=== PATIENT | female | born 1965 | race Caucasian/White ===

== ENCOUNTER 2017-11-27 01:24 | Emergency (ER) | payer MEDICAID ==
[~2017-11-27] VITALS: Ht 165.1 cm; Wt 70.0 kg
[~2017-11-27 01:24] MED LIST: ARIP5TAB4 PO; BENZ0.5T43 PO; CEPH500C5 PO; CLON0.5T4 PO; DIVA-81 PO; IBUP-1985 PO; LEVO75TA PO; LORA10TA7 PO; MELA3TAB PO; NAPR250T4 PO; OMEP20CA10 PO; PROC10TA PO; RISP1TAB13 PO; SIMV20TA5 PO
[2017-11-27 01:26] VITALS: BP 177/77
== END 2017-11-27 02:33 | disposition left against medical advice (07) ==
LOC: ER 01:24
DX: M79.662 Pain in left lower leg (principal); Z76.5 Malingerer [conscious simulation]; K21.9 Gastro-esophageal reflux disease without esophagitis; E78.00 Pure hypercholesterolemia, unspecified; J45.909 Unspecified asthma, uncomplicated; Z88.8 Allergy status to other drugs, medicaments and biological substances
CPT/HCPCS: 99283

== ENCOUNTER 2017-11-30 13:53 | Emergency (ER) | payer MEDICAID | END 2017-11-30 14:52 | disposition left against medical advice (07) | LOC: ER 13:55 | DX: R68.89 Other general symptoms and signs (principal); Z53.21 Procedure and treatment not carried out due to patient leaving prior to being seen by health care provider ==

== ENCOUNTER → 2018-01-31 | Emergency (ER) | payer MEDICAID ==
[~2018-01-31] VITALS: Ht 165.1 cm; Wt 60.6 kg
[2018-01-31 15:24] VITALS: BP 129/70
== END | disposition left against medical advice (07) ==
LOC: ER 15:09
DX: L02.91 Cutaneous abscess, unspecified (principal); Z53.21 Procedure and treatment not carried out due to patient leaving prior to being seen by health care provider

== ENCOUNTER 2018-03-25 20:31 | Emergency (ER) | payer MEDICAID ==
[~2018-03-25] VITALS: Ht 165.1 cm; Wt 62.3 kg
[2018-03-25 20:54] LABS: BASOPHILS # (AUTO) 0.1 X10'3 (0-0.2); BASOPHILS % (AUTO) 1.1 % (0-1); EOSINOPHILS # (AUTO) 0.3 X10'3 (0-0.9); EOSINOPHILS % (AUTO) 3.9 % (0-6); HEMATOCRIT 32.6 % (35.0-45.0); HEMOGLOBIN 10.8 g/dl (12.0-16.0); LYMPHOCYTES # (AUTO) 1.9 X10'3 (1.1-4.8); MEAN CORPUSCULAR HEMOGLOBIN 27.4 PG (27.0-31.0); MEAN CORPUSCULAR HGB CONC 33.2 % (33.0-36.5); MEAN CORPUSCULAR VOLUME 82.5 FL (78-98); MONOCYTES # (AUTO) 0.7 X10'3 (0-0.9); MONOCYTES % (AUTO) 9.5 % (2-12); NEUTROPHILS % (AUTO) 58.5 % (42-75); PLATELET COUNT 271 X10'3 (140-440); RED BLOOD COUNT 3.95 X10'6 (4.20-5.60); RED CELL DISTRIBUTION WIDTH 15.6 % (11.5-14.5); WHITE BLOOD COUNT 6.9 X10'3 (4.5-11.0)
[2018-03-25 21:03] LABS: PARTIAL THROMBOPLASTIN TIME 26 SECONDS (22-32); PROTHROMBIN TIME 10.3 SECONDS (9.0-12.0)
[2018-03-25 21:12] LABS: ALANINE AMINOTRANSFERASE 13 U/L (12-78); ALBUMIN 3.4 G/DL (3.4-5.0); ALBUMIN/GLOBULIN RATIO 1.1 (1.1-1.5); ALKALINE PHOSPHATASE 58 IU/L (46-116); ANION GAP 9 (8-16); ASPARTATE AMINO TRANSFERASE 12 U/L (10-37); BILIRUBIN,TOTAL 0.3 MG/DL (0.1-1.0); BLOOD UREA NITROGEN 21 MG/DL (7-18); BUN/CREATININE RATIO 16.9 (6.6-38.0); CALCIUM 8.6 MG/DL (8.5-10.1); CHLORIDE 103 MMOL/L (99-107); CREATININE 1.24 MG/DL (0.40-0.90); GLUCOSE 99 MG/DL (70-104); SODIUM 139 MMOL/L (135-145); TOTAL CARBON DIOXIDE 27.5 MMOL/L (24-32); TOTAL PROTEIN 6.5 G/DL (6.4-8.2); eGFR 46 ML/MIN
[2018-03-25 21:37] VITALS: BP 93/48
== END 2018-03-25 21:42 | disposition home or self-care (01) ==
LOC: ER 20:32
DX: R07.89 Other chest pain (principal); R42 Dizziness and giddiness; G43.909 Migraine, unspecified, not intractable, without status migrainosus; E78.00 Pure hypercholesterolemia, unspecified; J45.909 Unspecified asthma, uncomplicated; K21.9 Gastro-esophageal reflux disease without esophagitis; F12.10 Cannabis abuse, uncomplicated; F15.10 Other stimulant abuse, uncomplicated; Z56.0 Unemployment, unspecified; Z88.8 Allergy status to other drugs, medicaments and biological substances; Z79.899 Other long term (current) drug therapy
CPT/HCPCS: 36415; 71045; 80053; 84484; 85025; 85610; 85730; 93005; 99285

== ENCOUNTER 2018-04-21 21:34 | Emergency (ER) | payer MEDICAID ==
[~2018-04-21] VITALS: Ht 165.1 cm; Wt 65.0 kg
[~2018-04-21 21:34] MED LIST changes: -PROC10TA PO; +PROC10TA10 PO
[2018-04-21] MEDS ORDERED: diphenhydrAMINE 25mg capsule PO ONE (22:25)
[2018-04-21 22:37] VITALS: BP 110/70
== END 2018-04-22 06:31 | disposition home or self-care (01) ==
LOC: ER 21:36
DX: F41.8 Other specified anxiety disorders (principal); G43.909 Migraine, unspecified, not intractable, without status migrainosus; E78.00 Pure hypercholesterolemia, unspecified; K21.9 Gastro-esophageal reflux disease without esophagitis; F31.9 Bipolar disorder, unspecified; F20.9 Schizophrenia, unspecified; F12.10 Cannabis abuse, uncomplicated; F15.10 Other stimulant abuse, uncomplicated; Z88.8 Allergy status to other drugs, medicaments and biological substances; Z79.899 Other long term (current) drug therapy; Z56.0 Unemployment, unspecified
CPT/HCPCS: 99284; Q0163; 99282; 99283

== ENCOUNTER 2018-05-31 10:54 | Emergency (ER) | payer MEDICAID ==
[~2018-05-31] VITALS: Ht 152.4 cm; Wt 63.6 kg
[~2018-05-31 10:54] MED LIST changes: +CLON-285 PO; -CLON0.5T4 PO
[2018-05-31] MEDS ORDERED: TETanus/Pertussis (Acell)/Diphther VAC/PF (Tdap-Adult) 0.5ml syringe IM ONE (11:20)
[2018-05-31] MEDS ORDERED: naproxen 500mg tablet PO STA (11:20)
[2018-05-31] MEDS ORDERED: mupirocin 2% ointment 22GM TP STA (11:20)
[2018-05-31] MEDS ORDERED: mupirocin 2% nasal ointment 1gm UD NS STA (11:23)
[2018-05-31] MEDS ORDERED: NAPR-56 PO (11:35)
[2018-05-31] MEDS ORDERED: MUPI22OI30 TOP (11:35)
[2018-05-31 11:52] VITALS: BP 129/86
== END 2018-05-31 11:55 | disposition home or self-care (01) ==
LOC: ER 10:54
DX: T23.242A Burn of second degree of multiple left fingers (nail), including thumb, initial encounter (principal); T31.0 Burns involving less than 10% of body surface; G43.909 Migraine, unspecified, not intractable, without status migrainosus; E78.00 Pure hypercholesterolemia, unspecified; J45.909 Unspecified asthma, uncomplicated; K21.9 Gastro-esophageal reflux disease without esophagitis; F31.9 Bipolar disorder, unspecified; F15.90 Other stimulant use, unspecified, uncomplicated; F12.90 Cannabis use, unspecified, uncomplicated; Z98.51 Tubal ligation status; Z56.0 Unemployment, unspecified; Z88.8 Allergy status to other drugs, medicaments and biological substances; Z79.899 Other long term (current) drug therapy; Z79.2 Long term (current) use of antibiotics; X08.8XXA Exposure to other specified smoke, fire and flames, initial encounter; Y93.89 Activity, other specified; Y92.89 Other specified places as the place of occurrence of the external cause; Y99.8 Other external cause status
CPT/HCPCS: 16020; 90471; 90715; 99284; A6255; 16000

== ENCOUNTER 2018-06-01 07:11 | Emergency (ER) | payer MEDICAID ==
[~2018-06-01] VITALS: Ht 172.7 cm; Wt 58.0 kg
[~2018-06-01 07:11] MED LIST changes: +MUPI22OI30 TOP; +NAPR-56 PO
[2018-06-01 07:21] VITALS: BP 99/54
== END 2018-06-01 08:31 | disposition home or self-care (01) ==
LOC: ER 07:12
DX: T23.242D Burn of second degree of multiple left fingers (nail), including thumb, subsequent encounter (principal); G43.909 Migraine, unspecified, not intractable, without status migrainosus; E78.00 Pure hypercholesterolemia, unspecified; J45.909 Unspecified asthma, uncomplicated; K21.9 Gastro-esophageal reflux disease without esophagitis; F12.90 Cannabis use, unspecified, uncomplicated; F15.90 Other stimulant use, unspecified, uncomplicated; Z88.8 Allergy status to other drugs, medicaments and biological substances; Z79.899 Other long term (current) drug therapy; Z56.0 Unemployment, unspecified; X08.8XXD Exposure to other specified smoke, fire and flames, subsequent encounter
CPT/HCPCS: 99284

== ENCOUNTER 2018-08-02 00:24 | Emergency (ER) | payer MEDICAID ==
[~2018-08-02] VITALS: Ht 165.1 cm; Wt 51.8 kg
[~2018-08-02 00:24] MED LIST changes: -MUPI22OI30 TOP; -NAPR-56 PO
[2018-08-02 00:26] VITALS: BP 117/90
== END 2018-08-02 00:58 | disposition left against medical advice (07) ==
LOC: ER 00:25
DX: R00.2 Palpitations (principal); Z53.21 Procedure and treatment not carried out due to patient leaving prior to being seen by health care provider
CPT/HCPCS: 99281

== ENCOUNTER 2018-08-18 18:44 | Emergency (ER) | payer MEDICAID ==
[2018-08-18 18:46] VITALS: BP 132/65
== END 2018-08-18 19:02 | disposition left against medical advice (07) ==
LOC: ER 18:45
DX: R21 Rash and other nonspecific skin eruption (principal); Z53.21 Procedure and treatment not carried out due to patient leaving prior to being seen by health care provider

== ENCOUNTER 2018-10-03 14:15 | Emergency (ER) | payer MEDICAID ==
[~2018-10-03] VITALS: Ht 165.1 cm; Wt 66.8 kg
[2018-10-03 14:18] VITALS: BP 134/62
[2018-10-03] MEDS ORDERED: PRED10TA PO (14:39)
== END 2018-10-03 15:04 | disposition home or self-care (01) ==
LOC: ER 14:16
DX: R21 Rash and other nonspecific skin eruption (principal); L29.8 Other pruritus; L53.8 Other specified erythematous conditions; L98.8 Other specified disorders of the skin and subcutaneous tissue; G43.909 Migraine, unspecified, not intractable, without status migrainosus; E78.00 Pure hypercholesterolemia, unspecified; K21.9 Gastro-esophageal reflux disease without esophagitis; J45.909 Unspecified asthma, uncomplicated; F12.90 Cannabis use, unspecified, uncomplicated; F15.90 Other stimulant use, unspecified, uncomplicated; Z56.0 Unemployment, unspecified; Z88.8 Allergy status to other drugs, medicaments and biological substances; Z79.899 Other long term (current) drug therapy; Z98.51 Tubal ligation status; Z87.2 Personal history of diseases of the skin and subcutaneous tissue
CPT/HCPCS: 99283

== ENCOUNTER 2018-12-05 09:57 | Emergency (ER) | payer MEDICAID ==
[~2018-12-05] VITALS: Ht 165.1 cm; Wt 60.0 kg
[~2018-12-05 09:57] MED LIST changes: -CEPH500C5 PO; +PRED10TA PO
--- NOTE | 2018-12-05 10:17 | NUR ---
PT'S BELONGINGS TAKEN TO AMBULANCE [facility]OCK[facility]. ITEMS INCLUDE: 1 AVERY NECKLACE, 1 YELLOW NECKLACE, 1 PAIR OF SHOES, 2 PAIRS OF SOCKS, 2 PANTS, 1 JACKET, AND 1 SHIRT. 1 SET OF EYEGLASSES ON PATIENT AT THIS TIME.
--- NOTE | 2018-12-05 10:41 | NUR ---
CALLED AND INITIATED TELE PSYCH CONSULT AT THIS TIME
[2018-12-05 11:19] LABS: URINE HCG NEGATIVE (NEG)
[2018-12-05 11:22] LABS: CLARITY,URINE CLEAR (Clear); COLOR,URINE YELLOW (Yellow); GLUCOSE, URINE NEGATIVE (Neg); KETONES,URINE NEGATIVE (Neg); LEUKOCYTE ESTERASE ,URINE NEGATIVE (Neg); NITRITES, URINE NEGATIVE (Neg); OCCULT BLOOD,URINE NEGATIVE (Neg); PH,URINE 5.5 (4.8-8.0); PROTEIN,URINE NEGATIVE (Neg); UROBILINOGEN,URINE 0.2 E.U/dL (0.2-1.0)
[2018-12-05 11:28] LABS: UA COLLECTION TYPE CLN CATCH MIDSTREAM
[2018-12-05 11:38] LABS: URINE AMPHETAMINE SCREEN POSITIVE (Neg); URINE BARBITUATE SCREEN NEGATIVE (Neg); URINE BENZODIAZEPINES SCREEN NEGATIVE (Neg); URINE CANNABINOID SCREEN POSITIVE (Neg); URINE COCAINE SCREEN NEGATIVE (Neg); URINE METHADONE SCREEN NEGATIVE (Neg); URINE OPIATE SCREEN NEGATIVE (Neg); URINE PHENCYCLIDINE SCREEN NEGATIVE (Neg)
--- NOTE | 2018-12-05 12:10 | NUR ---
Pt currently having telepsych consult
[2018-12-05 12:47] LABS: BASOPHILS # (AUTO) 0.1 X10'3 (0-0.2); BASOPHILS % (AUTO) 0.9 % (0-1); EOSINOPHILS # (AUTO) 0.1 X10'3 (0-0.9); EOSINOPHILS % (AUTO) 2.4 % (0-6); HEMATOCRIT 39.4 % (35.0-45.0); HEMOGLOBIN 12.8 g/dl (12.0-16.0); LYMPHOCYTES # (AUTO) 1.2 X10'3 (1.1-4.8); LYMPHOCYTES % (AUTO) 18.8 % (21-51); MEAN CORPUSCULAR HEMOGLOBIN 27.9 PG (27.0-31.0); MEAN CORPUSCULAR HGB CONC 32.4 % (33.0-36.5); MEAN PLATELET VOLUME 8.3 FL (7.4-10.4); MONOCYTES # (AUTO) 0.5 X10'3 (0-0.9); MONOCYTES % (AUTO) 7.6 % (2-12); NEUTROPHILS # (AUTO) 4.4 X10'3 (1.8-7.7); NEUTROPHILS % (AUTO) 70.3 % (42-75); PLATELET COUNT 293 X10'3 (140-440); RED BLOOD COUNT 4.58 X10'6 (4.20-5.60); RED CELL DISTRIBUTION WIDTH 15.4 % (11.5-14.5); WHITE BLOOD COUNT 6.3 X10'3 (4.5-11.0)
[2018-12-05] MEDS ORDERED: ALBU18HF2 INH (13:06)
[2018-12-05] MEDS ORDERED: NAPR-996 PO (13:06)
[2018-12-05] MEDS ORDERED: OMEP-50 PO (13:06)
[2018-12-05] MEDS ORDERED: CALC-829 PO (13:06)
[2018-12-05] MEDS ORDERED: ARIP400S3 IM (13:06)
[2018-12-05] MEDS ORDERED: TOPI50TA24 PO (13:06)
[2018-12-05] MEDS ORDERED: DIVA500T39 PO (13:06)
[2018-12-05] MEDS ORDERED: FEXO-61 PO (13:06)
[2018-12-05] MEDS ORDERED: KEN0.1O (13:06)
[2018-12-05] MEDS ORDERED: SUMA100T16 PO (13:06)
[2018-12-05 13:21] LABS: ALBUMIN 3.5 G/DL (3.4-5.0); ALBUMIN/GLOBULIN RATIO 1.2 (1.1-1.5); ANION GAP 12 (8-16); ASPARTATE AMINO TRANSFERASE 12 U/L (10-37); BILIRUBIN,TOTAL 0.3 MG/DL (0.1-1.0); CALCIUM 8.7 MG/DL (8.5-10.1); CHLORIDE 99 MMOL/L (99-107); CREATININE 0.85 MG/DL (0.40-0.90); GLUCOSE 94 MG/DL (70-104); POTASSIUM 3.9 MMOL/L (3.5-5.1); SODIUM 135 MMOL/L (135-145); TOTAL CARBON DIOXIDE 24.5 MMOL/L (24-32); TOTAL PROTEIN 6.5 G/DL (6.4-8.2); eGFR 71 ML/MIN
[2018-12-05 13:22] LABS: ALANINE AMINOTRANSFERASE 13 U/L (12-78); ALKALINE PHOSPHATASE 57 IU/L (46-116); ETHANOL < 0.010 GM/DL (0.0-0.010)
[2018-12-05 13:29] LABS: BLOOD UREA NITROGEN 7 MG/DL (7-18); BUN/CREATININE RATIO 8.2 (6.6-38.0)
[2018-12-05] MEDS ORDERED: non-formulary drug (Ibuprofen 1 TAB) PO PRN (13:30)
[2018-12-05] MEDS ORDERED: aripiprazole 400mg suspension ER syringe IM SCH (13:42)
[2018-12-05] MEDS ORDERED: albuterol 2.5 MG/3 ML nebule NEB PRN (13:45)
--- NOTE | 2018-12-05 15:00 | NUR ---
PACKET FAXED TO [facility] OFFICE AT THIS TIME
--- NOTE | 2018-12-05 15:13 | NUR ---
Patient is sleeping
[2018-12-05] MEDS ORDERED: LORazepam 1 MG tablet PO PRN (15:40)
[2018-12-05] MEDS ORDERED: ziprasidone IM 20mg inj **IM only IM PRN (15:40)
[2018-12-05] MEDS ORDERED: ziprasidone 20mg capsule PO PRN (15:40)
[2018-12-05] MEDS: topiramate 25mg tablet PO SCH (16:04)
[2018-12-05] MEDS: cetirizine 10mg tablet PO SCH (16:05)
[2018-12-05] MEDS: calcium carbonate/vitamin D3 tablet PO SCH (16:05)
[2018-12-05] MEDS: aripiprazole 5mg tablet PO SCH (16:05)
[2018-12-05] MEDS ORDERED: ibuprofen 200mg tablet PO ONE (17:10)
--- NOTE | 2018-12-05 18:22 | NUR ---
Report given to ELSY Carreon
--- NOTE | 2018-12-05 18:25 | NUR ---
Assumed care, sitting up in bed, denies needs at this time.
--- NOTE | 2018-12-05 18:28 | NUR ---
TSH report faxed to Felipe Aly at [phone]
--- NOTE | 2018-12-05 18:59 | NUR ---
Resting in bed, eyes closed, sonorous respirations, appearing to sleep. Will monitor.
[2018-12-05] MEDS: naproxen 500mg tablet PO SCH (20:00)
--- NOTE | 2018-12-05 20:00 | NUR ---
Resting in bed, eyes closed, appearing to sleep with even and unlabored sonorous respirations. Arousable, offered and declined supper. Will continue to monitor for changes.
--- NOTE | 2018-12-05 20:15 | NUR ---
Chente gonzales in [facility] - 12/05/18 at 2024 [address]ONE TELE-PSYCH DR INTERVIEWING PT.
--- NOTE | 2018-12-05 20:52 | NUR ---
Resting in bed, continues sonorous respirations, appearing to sleep. Reviewed medications previously given, per nrsg judgement, will hold HS medications at this time and continue to monitor.
[2018-12-05] MEDS ORDERED: Melatonin 3mg tablet PO SCH (21:00)
[2018-12-05] MEDS: divalproex sodium 500mg tablet.DR PO SCH ×2 (21:00→22:29)
[2018-12-05] MEDS: atorvastatin 10mg tablet PO SCH ×2 (21:00→22:30)
--- NOTE | 2018-12-05 22:06 | NUR ---
Patient resting in bed with eyes closed, appearing to sleep without new issues or concerns noted. Will continue to monitor.
--- NOTE | 2018-12-05 22:14 | NUR ---
Nurse to Nurse completed with [place] [facility]
--- NOTE | 2018-12-05 22:24 | NUR ---
Up to BRP, gait steady, denies needs. Some medications given, see eMAR.
--- NOTE | 2018-12-05 22:31 | NUR ---
[place] and milk provided to patient
--- NOTE | 2018-12-05 23:01 | NUR ---
Resting in bed, eyes closed, appearing to sleep, will continue to monitor.
--- NOTE | 2018-12-06 | NUR ---
Resting in bed, eyes closed, appearing to sleep, will continue to monitor.
--- NOTE | 2018-12-06 01:15 | NUR ---
Resting in bed with sonorous respirations. Appearing to sleep soundly. Will continue to monitor for changes.
--- NOTE | 2018-12-06 01:43 | NUR ---
TSH report faxed to Sumit Aly at [phone]
--- NOTE | 2018-12-06 02:07 | NUR ---
Resting in bed, eyes closed, appearing to sleep, will continue to monitor.
--- NOTE | 2018-12-06 03:11 | NUR ---
Resting in bed, eyes closed, appearing to sleep, will continue to monitor.
--- NOTE | 2018-12-06 04:05 | NUR ---
Resting in bed, appears to sleep. No new concerns. Will monitor.
--- NOTE | 2018-12-06 05:17 | NUR ---
Resting in bed, appears to sleep, easily aroused. No new concerns. Vitals taken. Will monitor.
[2018-12-06 05:30] VITALS: BP 124/65
[2018-12-06] MEDS ORDERED: pantoprazole 40mg Tablet.DR PO SCH (07:30)
[2018-12-06] MEDS ORDERED: levoTHYROXINE 75mcg tablet PO SCH (08:00)
[2018-12-06] MEDS: topiramate 25mg tablet PO SCH (09:31)
[2018-12-06] MEDS: cetirizine 10mg tablet PO SCH (09:31)
[2018-12-06] MEDS: calcium carbonate/vitamin D3 tablet PO SCH (09:32)
[2018-12-06] MEDS: aripiprazole 5mg tablet PO SCH (09:32)
[2018-12-06] MEDS: naproxen 500mg tablet PO SCH (09:32)
--- NOTE | 2018-12-06 10:12 | NUR ---
pt is in bed, supine, visitor just left, no s/s of distress noted
== END 2018-12-06 12:00 ==
LOC: ER 09:58
DX: F29 Unspecified psychosis not due to a substance or known physiological condition (principal); F32.9 Major depressive disorder, single episode, unspecified; F41.9 Anxiety disorder, unspecified; F20.9 Schizophrenia, unspecified; G43.909 Migraine, unspecified, not intractable, without status migrainosus; E78.00 Pure hypercholesterolemia, unspecified; J45.909 Unspecified asthma, uncomplicated; K21.9 Gastro-esophageal reflux disease without esophagitis; F12.90 Cannabis use, unspecified, uncomplicated; F15.90 Other stimulant use, unspecified, uncomplicated; Z88.8 Allergy status to other drugs, medicaments and biological substances; Z79.899 Other long term (current) drug therapy; Z56.0 Unemployment, unspecified
CPT/HCPCS: 36415; 80053; 80305; 80320; 81003; 81025; 85025; 96372; 99285

== ENCOUNTER 2018-12-27 17:01 | Emergency (ER) | payer MEDICAID ==
[~2018-12-27] VITALS: Ht 165.1 cm; Wt 58.2 kg
[~2018-12-27 17:01] MED LIST changes: +ALBU18HF2 INH; +ARIP400S3 IM; -BENZ0.5T43 PO; +CALC-829 PO; -CLON-285 PO; -DIVA-81 PO; +DIVA500T39 PO; +FEXO-61 PO; +KEN0.1O; -LORA10TA7 PO; +NAPR-996 PO; -NAPR250T4 PO; +OMEP-50 PO; -OMEP20CA10 PO; -PRED10TA PO; -PROC10TA10 PO; -RISP1TAB13 PO; +SUMA100T16 PO; +TOPI50TA24 PO
--- NOTE | 2018-12-27 17:16 | NUR ---
PT. AWAKE AND ALERT. PT. LOOKING AROUND. CALLED POISON CONTROL.... PT. STATES SHE TOOK ABILIFY 10 TABS AT 1400.... INSTRUCTIONS FROM POISON CONTROL IS MONITOR PT. FOR LEATHERGY FOR 6 HOURS FROM THE TIME SHE TOOK THE MEDS. LOOK FOR WIDENING QT INTERVAL
--- NOTE | 2018-12-27 17:42 | NUR ---
PATIENT DENIES THAT SHE TOOK MORE ABILIFY THAN PRESCRIBED: HAS A PRN FOR ABILIFY FOR HEARING VOICES; GLOVE CLEANER STATES SHE TOOK 3 ABILIFY, NOT ANYMORE. SHE STATES THAT SHE ALSO TOOK HER DEPAKOTE AND COGENTIN. PT STATES THAT SHE IS SCHIZOPHRENIC AND BIP
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
[2018-12-27 17:49] LABS: BASOPHILS % (AUTO) 0.6 % (0-1); EOSINOPHILS # (AUTO) 0.3 X10'3 (0-0.9); HEMATOCRIT 35.8 % (35.0-45.0); HEMOGLOBIN 12.1 g/dl (12.0-16.0); LYMPHOCYTES # (AUTO) 1.3 X10'3 (1.1-4.8); LYMPHOCYTES % (AUTO) 16.9 % (21-51); MEAN CORPUSCULAR HEMOGLOBIN 29.1 PG (27.0-31.0); MEAN CORPUSCULAR HGB CONC 33.7 % (33.0-36.5); MEAN CORPUSCULAR VOLUME 86.2 FL (78-98); MEAN PLATELET VOLUME 8.2 FL (7.4-10.4); MONOCYTES # (AUTO) 0.4 X10'3 (0-0.9); MONOCYTES % (AUTO) 4.6 % (2-12); NEUTROPHILS # (AUTO) 5.7 X10'3 (1.8-7.7); NEUTROPHILS % (AUTO) 73.9 % (42-75); PLATELET COUNT 317 X10'3 (140-440); RED BLOOD COUNT 4.15 X10'6 (4.20-5.60); RED CELL DISTRIBUTION WIDTH 14.7 % (11.5-14.5); WHITE BLOOD COUNT 7.7 X10'3 (4.5-11.0)
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
[2018-12-27 18:13] LABS: ALANINE AMINOTRANSFERASE 13 U/L (12-78); ALBUMIN 3.5 G/DL (3.4-5.0); ALBUMIN/GLOBULIN RATIO 1.1 (1.1-1.5); ALKALINE PHOSPHATASE 58 IU/L (46-116); ANION GAP 7 (8-16); ASPARTATE AMINO TRANSFERASE 14 U/L (10-37); BILIRUBIN,TOTAL 0.2 MG/DL (0.1-1.0); BLOOD UREA NITROGEN 8 MG/DL (7-18); BUN/CREATININE RATIO 8.2 (6.6-38.0); CALCIUM 8.7 MG/DL (8.5-10.1); CHLORIDE 101 MMOL/L (99-107); CREATININE 0.97 MG/DL (0.40-0.90); ETHANOL < 0.010 GM/DL (0.0-0.010); GLUCOSE 106 MG/DL (70-104); POTASSIUM 3.9 MMOL/L (3.5-5.1); SODIUM 136 MMOL/L (135-145); TOTAL CARBON DIOXIDE 27.7 MMOL/L (24-32); TOTAL PROTEIN 6.7 G/DL (6.4-8.2); eGFR 61 ML/MIN
[2018-12-27 18:14] LABS: ACETAMINOPHEN < 2.0 UG/ML (10-30)
[2018-12-27 19:17] LABS: URINE HCG NEGATIVE (NEG)
[2018-12-27 19:39] LABS: URINE AMPHETAMINE SCREEN POSITIVE (Neg); URINE BARBITUATE SCREEN NEGATIVE (Neg); URINE BENZODIAZEPINES SCREEN NEGATIVE (Neg); URINE CANNABINOID SCREEN POSITIVE (Neg); URINE COCAINE SCREEN NEGATIVE (Neg); URINE METHADONE SCREEN NEGATIVE (Neg); URINE OPIATE SCREEN NEGATIVE (Neg); URINE PHENCYCLIDINE SCREEN NEGATIVE (Neg)
--- NOTE | 2018-12-27 19:49 | NUR ---
no qt prolongation noted throut stay
[2018-12-27] MEDS ORDERED: acetaminophen 325mg tablet PO ONE (20:15)
--- NOTE | 2018-12-27 20:29 | NUR ---
Call placed to [facility], verified patient in the queue. "Essie" indicates that pt is second in line for [facility] in the queue.
--- NOTE | 2018-12-27 20:32 | NUR ---
telephych called again; monitor 1 taken to overflow; will use monitor 2
[2018-12-27 22:00] VITALS: BP 99/34
== END 2018-12-27 22:03 ==
LOC: ER 17:01
DX: F22 Delusional disorders (principal); G43.909 Migraine, unspecified, not intractable, without status migrainosus; E78.00 Pure hypercholesterolemia, unspecified; J45.909 Unspecified asthma, uncomplicated; K21.9 Gastro-esophageal reflux disease without esophagitis; F41.9 Anxiety disorder, unspecified; F31.9 Bipolar disorder, unspecified; F20.9 Schizophrenia, unspecified; F12.90 Cannabis use, unspecified, uncomplicated; F15.90 Other stimulant use, unspecified, uncomplicated; Z56.0 Unemployment, unspecified; Z98.51 Tubal ligation status; Z88.8 Allergy status to other drugs, medicaments and biological substances; Z79.899 Other long term (current) drug therapy
CPT/HCPCS: 36415; 80053; 80305; 80320; 80329; 81025; 85025; 99284; 99285

== ENCOUNTER 2018-12-29 14:12 | Emergency (ER) | payer MEDICAID ==
[~2018-12-29] VITALS: Ht 165.1 cm; Wt 63.6 kg
[2018-12-29 14:21] VITALS: BP 132/77
--- NOTE | 2018-12-29 14:37 | NUR ---
PT INFORMED ADMITTING THAT SHE WAS "FEELING BETTER AND WAS GOING TO GO HOME AND TAKE SOME IBUPROFEN." PT NO LONGER WANTED TO BE SEEN AND REMOVED FROM [facility]
== END 2018-12-29 14:39 | disposition left against medical advice (07) ==
LOC: ER 14:14
DX: Z00.8 Encounter for other general examination (principal); Z53.21 Procedure and treatment not carried out due to patient leaving prior to being seen by health care provider

== ENCOUNTER 2019-01-05 17:40 | Emergency (ER) | payer MEDICAID ==
[~2019-01-05] VITALS: Ht 165.1 cm; Wt 57.7 kg
[2019-01-05 17:45] VITALS: BP 130/46
[2019-01-05] MEDS ORDERED: HYDROcodone/acetaminophen 10/325mg tab PO ONE (18:25)
[2019-01-05] MEDS ORDERED: PENI250T2 PO (18:32)
[2019-01-05] MEDS ORDERED: IBUP-1984 PO (18:32)
== END 2019-01-05 18:51 | disposition home or self-care (01) ==
LOC: ER 17:40
DX: K04.7 Periapical abscess without sinus (principal); E78.00 Pure hypercholesterolemia, unspecified; J45.909 Unspecified asthma, uncomplicated; K21.9 Gastro-esophageal reflux disease without esophagitis; F12.90 Cannabis use, unspecified, uncomplicated; F15.90 Other stimulant use, unspecified, uncomplicated; F17.200 Nicotine dependence, unspecified, uncomplicated; Z98.51 Tubal ligation status; Z56.0 Unemployment, unspecified; Z88.8 Allergy status to other drugs, medicaments and biological substances; Z79.899 Other long term (current) drug therapy; Z79.2 Long term (current) use of antibiotics
CPT/HCPCS: 99283

== ENCOUNTER 2019-02-03 10:04 | Emergency (ER) | payer MEDICAID ==
[~2019-02-03] VITALS: Ht 165.1 cm; Wt 59.5 kg
[2019-02-03 10:10] VITALS: BP 139/50
[2019-02-03] MEDS ORDERED: TOBR5DRO2 RIGHTEYE (10:12)
== END 2019-02-03 10:28 | disposition home or self-care (01) ==
LOC: ER 10:05
DX: H10.9 Unspecified conjunctivitis (principal); E78.00 Pure hypercholesterolemia, unspecified; K21.9 Gastro-esophageal reflux disease without esophagitis; G43.909 Migraine, unspecified, not intractable, without status migrainosus; J45.909 Unspecified asthma, uncomplicated; F12.90 Cannabis use, unspecified, uncomplicated; F15.90 Other stimulant use, unspecified, uncomplicated; Z87.891 Personal history of nicotine dependence; Z88.8 Allergy status to other drugs, medicaments and biological substances; Z79.899 Other long term (current) drug therapy
CPT/HCPCS: 99283

== ENCOUNTER 2019-03-28 14:57 | Emergency (ER) | payer MEDICAID ==
[~2019-03-28] VITALS: Ht 165.1 cm; Wt 51.8 kg
[2019-03-28 15:03] VITALS: BP 107/60
[2019-03-28] MEDS ORDERED: acetaminophen 325mg tablet PO ONE (15:20)
== END 2019-03-28 15:40 | disposition home or self-care (01) ==
LOC: ER 14:58
DX: J04.0 Acute laryngitis (principal); E78.00 Pure hypercholesterolemia, unspecified; J45.909 Unspecified asthma, uncomplicated; K21.9 Gastro-esophageal reflux disease without esophagitis; F12.90 Cannabis use, unspecified, uncomplicated; F15.90 Other stimulant use, unspecified, uncomplicated; Z98.51 Tubal ligation status; Z56.0 Unemployment, unspecified; Z88.8 Allergy status to other drugs, medicaments and biological substances; Z79.2 Long term (current) use of antibiotics; Z79.899 Other long term (current) drug therapy
CPT/HCPCS: 99282

== ENCOUNTER → 2019-03-28 | Emergency (ER) | payer MEDICAID ==
[~2019-03-28] MED LIST changes: +TOBR5DRO2 RIGHTEYE
--- NOTE | 2019-03-28 23:25 | NUR ---
Call placed to number on file after triage 3 times. Left message expressing concern for Pt.'s wellbeing and encouraged her to return for Eval. Dr. Naidu informed. Addendum: 03/28/19 at 0884 by DANIAL note should read.... after attempting to triage 3 times
== END | disposition left against medical advice (07) ==
LOC: ER 20:11
DX: E07.9 Disorder of thyroid, unspecified (principal); Z53.21 Procedure and treatment not carried out due to patient leaving prior to being seen by health care provider

== ENCOUNTER 2019-03-30 20:08 | Emergency (ER) | payer MEDICAID ==
[~2019-03-30] VITALS: Ht 165.1 cm; Wt 50.0 kg
[2019-03-30 20:24] VITALS: BP 132/75
== END 2019-03-30 21:42 | disposition left against medical advice (07) ==
LOC: ER 20:09
DX: J02.9 Acute pharyngitis, unspecified (principal); R22.1 Localized swelling, mass and lump, neck; Z53.21 Procedure and treatment not carried out due to patient leaving prior to being seen by health care provider; Z79.899 Other long term (current) drug therapy; Z88.8 Allergy status to other drugs, medicaments and biological substances

== ENCOUNTER 2019-05-08 12:27 | Emergency (ER) | payer MEDICAID ==
[~2019-05-08] VITALS: Ht 165.1 cm; Wt 51.0 kg
[2019-05-08 12:41] VITALS: BP 124/66
[2019-05-08 14:13] LABS: BASOPHILS # (AUTO) 0.1 X10'3 (0-0.2); BASOPHILS % (AUTO) 0.8 % (0-1); EOSINOPHILS # (AUTO) 0.3 X10'3 (0-0.9); EOSINOPHILS % (AUTO) 4.2 % (0-6); HEMATOCRIT 38.1 % (35.0-45.0); HEMOGLOBIN 12.8 g/dl (12.0-16.0); LYMPHOCYTES # (AUTO) 1.7 X10'3 (1.1-4.8); LYMPHOCYTES % (AUTO) 20.1 % (21-51); MEAN CORPUSCULAR HEMOGLOBIN 29.2 PG (27.0-31.0); MEAN CORPUSCULAR HGB CONC 33.7 g/dL (33.0-36.5); MEAN CORPUSCULAR VOLUME 86.8 FL (78-98); MONOCYTES # (AUTO) 0.6 X10'3 (0-0.9); MONOCYTES % (AUTO) 7.5 % (2-12); NEUTROPHILS # (AUTO) 5.6 X10'3 (1.8-7.7); NEUTROPHILS % (AUTO) 67.4 % (42-75); PLATELET COUNT 281 X10'3 (140-440); RED BLOOD COUNT 4.39 X10'6 (4.20-5.60); RED CELL DISTRIBUTION WIDTH 15.8 % (11.5-14.5); WHITE BLOOD COUNT 8.3 X10'3 (4.5-11.0)
[2019-05-08 14:16] LABS: ALANINE AMINOTRANSFERASE 10 U/L (12-78); ALBUMIN 3.8 G/DL (3.4-5.0); ALBUMIN/GLOBULIN RATIO 1.1 (1.1-1.5); ALKALINE PHOSPHATASE 60 IU/L (46-116); ANION GAP 5 (8-16); ASPARTATE AMINO TRANSFERASE 12 U/L (10-37); BILIRUBIN,TOTAL 0.2 MG/DL (0.1-1.0); BLOOD UREA NITROGEN 19 MG/DL (7-18); BUN/CREATININE RATIO 16.8 (6.6-38.0); CALCIUM 9.1 MG/DL (8.5-10.1); CHLORIDE 105 MMOL/L (99-107); CREATININE 1.13 MG/DL (0.40-0.90); GLUCOSE 93 MG/DL (70-104); POTASSIUM 4.2 MMOL/L (3.5-5.1); SODIUM 137 MMOL/L (135-145); TOTAL PROTEIN 7.3 G/DL (6.4-8.2); eGFR 51 ML/MIN
== END 2019-05-08 14:28 | disposition left against medical advice (07) ==
LOC: ER 12:28
DX: R49.0 Dysphonia (principal); F15.10 Other stimulant abuse, uncomplicated; G43.909 Migraine, unspecified, not intractable, without status migrainosus; E78.00 Pure hypercholesterolemia, unspecified; J45.909 Unspecified asthma, uncomplicated; K21.9 Gastro-esophageal reflux disease without esophagitis; F12.90 Cannabis use, unspecified, uncomplicated; Z98.51 Tubal ligation status; Z88.8 Allergy status to other drugs, medicaments and biological substances; Z79.899 Other long term (current) drug therapy; Z56.0 Unemployment, unspecified
CPT/HCPCS: 36415; 80053; 84443; 85025; 99283

== ENCOUNTER 2019-05-08 22:46 | Emergency (ER) | payer MEDICAID ==
[~2019-05-08] VITALS: Ht 165.1 cm; Wt 51.0 kg
[2019-05-08 23:01] VITALS: BP 103/50
== END 2019-05-08 23:12 | disposition home or self-care (01) ==
LOC: ER 22:47
DX: R49.0 Dysphonia (principal); G43.909 Migraine, unspecified, not intractable, without status migrainosus; E78.00 Pure hypercholesterolemia, unspecified; J45.909 Unspecified asthma, uncomplicated; K21.9 Gastro-esophageal reflux disease without esophagitis; F12.90 Cannabis use, unspecified, uncomplicated; F15.90 Other stimulant use, unspecified, uncomplicated; Z98.51 Tubal ligation status; Z88.8 Allergy status to other drugs, medicaments and biological substances; Z79.899 Other long term (current) drug therapy; Z56.0 Unemployment, unspecified
CPT/HCPCS: 99281

== ENCOUNTER 2019-06-26 17:24 | Emergency (ER) | payer MEDICAID ==
[~2019-06-26] VITALS: Ht 165.1 cm; Wt 51.8 kg
[~2019-06-26 17:24] MED LIST changes: -MELA3TAB PO; +MELA3TAB64 PO
[2019-06-26 17:29] VITALS: BP 142/87
== END 2019-06-26 18:54 | disposition home or self-care (01) ==
LOC: ER 17:24
DX: B35.1 Tinea unguium (principal); R21 Rash and other nonspecific skin eruption; G43.909 Migraine, unspecified, not intractable, without status migrainosus; E78.00 Pure hypercholesterolemia, unspecified; J45.909 Unspecified asthma, uncomplicated; K21.9 Gastro-esophageal reflux disease without esophagitis; F41.9 Anxiety disorder, unspecified; F31.9 Bipolar disorder, unspecified; F20.9 Schizophrenia, unspecified; F12.90 Cannabis use, unspecified, uncomplicated; F15.90 Other stimulant use, unspecified, uncomplicated; Z56.0 Unemployment, unspecified; Z98.51 Tubal ligation status; Z88.8 Allergy status to other drugs, medicaments and biological substances; Z79.899 Other long term (current) drug therapy
CPT/HCPCS: 99281

== ENCOUNTER 2019-08-03 14:25 | Emergency (ER) | payer MEDICAID ==
[~2019-08-03] VITALS: Ht 165.1 cm; Wt 54.0 kg
[2019-08-03 14:52] VITALS: BP 106/65
--- NOTE | 2019-08-03 15:11 | NUR ---
pt states. after asa given felt much better.
[2019-08-04] MEDS ORDERED: POLY17PO10 PO (20:22)
== END 2019-08-03 15:44 | disposition home or self-care (01) ==
LOC: ER 14:25
DX: R07.89 Other chest pain (principal); F20.9 Schizophrenia, unspecified; G43.909 Migraine, unspecified, not intractable, without status migrainosus; E78.00 Pure hypercholesterolemia, unspecified; J45.909 Unspecified asthma, uncomplicated; K21.9 Gastro-esophageal reflux disease without esophagitis; F41.9 Anxiety disorder, unspecified; F31.9 Bipolar disorder, unspecified; F12.90 Cannabis use, unspecified, uncomplicated; F15.90 Other stimulant use, unspecified, uncomplicated; F10.99 Alcohol use, unspecified with unspecified alcohol-induced disorder; Z98.51 Tubal ligation status; Z56.0 Unemployment, unspecified; Z88.8 Allergy status to other drugs, medicaments and biological substances; Z79.899 Other long term (current) drug therapy; Y90.9 Presence of alcohol in blood, level not specified
CPT/HCPCS: 93005; 99283

== ENCOUNTER 2019-08-04 19:38 | Emergency (ER) | payer MEDICAID ==
[~2019-08-04] VITALS: Ht 165.1 cm; Wt 56.8 kg
[2019-08-04 19:41] VITALS: BP 102/66
[2019-08-04] MEDS ORDERED: POLY17PO10 PO (20:22)
== END 2019-08-04 20:37 | disposition home or self-care (01) ==
LOC: ER 19:38
DX: K59.00 Constipation, unspecified (principal); F20.9 Schizophrenia, unspecified; G43.909 Migraine, unspecified, not intractable, without status migrainosus; E78.00 Pure hypercholesterolemia, unspecified; J45.909 Unspecified asthma, uncomplicated; K21.9 Gastro-esophageal reflux disease without esophagitis; F41.9 Anxiety disorder, unspecified; F31.9 Bipolar disorder, unspecified; F12.90 Cannabis use, unspecified, uncomplicated; F15.90 Other stimulant use, unspecified, uncomplicated; Z56.0 Unemployment, unspecified; Z98.51 Tubal ligation status; Z88.8 Allergy status to other drugs, medicaments and biological substances; Z79.899 Other long term (current) drug therapy
CPT/HCPCS: 99283

== ENCOUNTER 2019-08-05 16:59 | Emergency (ER) | payer MEDICAID ==
[~2019-08-05] VITALS: Ht 165.1 cm; Wt 55.0 kg
[~2019-08-05 16:59] MED LIST changes: +POLY17PO10 PO
[2019-08-05 17:05] VITALS: BP 161/102
--- NOTE | 2019-08-05 17:23 | NUR ---
pt states she is coming down off of meth and has not eaten in 3 days, requesting a meal
[2019-08-05 17:32] LABS: BASOPHILS # (AUTO) 0.1 X10'3 (0-0.2); BASOPHILS % (AUTO) 1.1 % (0-1); EOSINOPHILS # (AUTO) 0.2 X10'3 (0-0.9); EOSINOPHILS % (AUTO) 3.2 % (0-6); HEMATOCRIT 39.8 % (35.0-45.0); HEMOGLOBIN 13.3 g/dl (12.0-16.0); LYMPHOCYTES # (AUTO) 1.7 X10'3 (1.1-4.8); LYMPHOCYTES % (AUTO) 24.4 % (21-51); MEAN CORPUSCULAR HEMOGLOBIN 30.1 PG (27.0-31.0); MEAN CORPUSCULAR HGB CONC 33.5 g/dL (33.0-36.5); MEAN PLATELET VOLUME 8.1 FL (7.4-10.4); MONOCYTES # (AUTO) 0.5 X10'3 (0-0.9); MONOCYTES % (AUTO) 6.5 % (2-12); NEUTROPHILS # (AUTO) 4.6 X10'3 (1.8-7.7); NEUTROPHILS % (AUTO) 64.8 % (42-75); PLATELET COUNT 294 X10'3 (140-440); RED BLOOD COUNT 4.43 X10'6 (4.20-5.60); RED CELL DISTRIBUTION WIDTH 13.8 % (11.5-14.5); WHITE BLOOD COUNT 7.1 X10'3 (4.5-11.0)
[2019-08-05 17:46] LABS: ALANINE AMINOTRANSFERASE 12 U/L (12-78); ALBUMIN 3.9 G/DL (3.4-5.0); ALBUMIN/GLOBULIN RATIO 1.1 (1.1-1.5); ALKALINE PHOSPHATASE 52 IU/L (46-116); ANION GAP 6 (8-16); ASPARTATE AMINO TRANSFERASE 9 U/L (10-37); BILIRUBIN,TOTAL 0.2 MG/DL (0.1-1.0); BLOOD UREA NITROGEN 20 MG/DL (7-18); CALCIUM 9.3 MG/DL (8.5-10.1); CHLORIDE 106 MMOL/L (99-107); CREATININE 1.05 MG/DL (0.40-0.90); GLUCOSE 90 MG/DL (70-104); POTASSIUM 3.4 MMOL/L (3.5-5.1); SODIUM 143 MMOL/L (135-145); TOTAL CARBON DIOXIDE 30.9 MMOL/L (24-32); TOTAL PROTEIN 7.3 G/DL (6.4-8.2); eGFR 55 ML/MIN
[2019-08-05 17:50] LABS: LIPASE 224 U/L (73-393)
--- NOTE | 2019-08-05 18:11 | NUR ---
pt asking to go home, states she feels better.
== END 2019-08-05 18:47 | disposition left against medical advice (07) ==
LOC: ER 17:00
DX: R10.84 Generalized abdominal pain (principal); R42 Dizziness and giddiness; G43.909 Migraine, unspecified, not intractable, without status migrainosus; E78.00 Pure hypercholesterolemia, unspecified; J45.909 Unspecified asthma, uncomplicated; K21.9 Gastro-esophageal reflux disease without esophagitis; F12.90 Cannabis use, unspecified, uncomplicated; F15.90 Other stimulant use, unspecified, uncomplicated; Z56.0 Unemployment, unspecified; Z98.51 Tubal ligation status; Z88.8 Allergy status to other drugs, medicaments and biological substances; Z79.899 Other long term (current) drug therapy
CPT/HCPCS: 36415; 80053; 83690; 85025; 85610; 99283

== ENCOUNTER 2019-08-07 21:32 | Emergency (ER) | payer MEDICAID | END 2019-08-07 22:58 | disposition left against medical advice (07) | LOC: ER 21:33 | DX: R07.89 Other chest pain (principal); Z53.21 Procedure and treatment not carried out due to patient leaving prior to being seen by health care provider ==

== ENCOUNTER 2019-08-30 18:10 | Emergency (ER) | payer MEDICAID ==
[~2019-08-30] VITALS: Ht 165.1 cm; Wt 55.0 kg
[2019-08-30 18:23] VITALS: BP 134/64
[2019-08-30] MEDS ORDERED: PENI500T2 PO (18:40)
== END 2019-08-30 18:58 | disposition home or self-care (01) ==
LOC: ER 18:11
DX: K08.89 Other specified disorders of teeth and supporting structures (principal); G43.909 Migraine, unspecified, not intractable, without status migrainosus; E78.00 Pure hypercholesterolemia, unspecified; J45.909 Unspecified asthma, uncomplicated; K21.9 Gastro-esophageal reflux disease without esophagitis; F31.9 Bipolar disorder, unspecified; F20.9 Schizophrenia, unspecified; F12.90 Cannabis use, unspecified, uncomplicated; F15.90 Other stimulant use, unspecified, uncomplicated; Z98.51 Tubal ligation status; Z56.0 Unemployment, unspecified; Z88.8 Allergy status to other drugs, medicaments and biological substances; Z79.899 Other long term (current) drug therapy
CPT/HCPCS: 99283

== ENCOUNTER 2019-09-07 04:58 | Emergency (ER) | payer MEDICAID ==
[~2019-09-07] VITALS: Ht 165.1 cm; Wt 53.2 kg
[~2019-09-07 04:58] MED LIST changes: +ARIP5TAB14 PO; -ARIP5TAB4 PO; +PENI500T2 PO; -POLY17PO10 PO; +SIMV-42 PO; -SIMV20TA5 PO
[2019-09-07] MEDS ORDERED: normal saline 1000ML IV soln IVB ONE (05:00)
[2019-09-07] MEDS ORDERED: LORazepam 2 mg/ml vial IV ONE (05:00)
--- NOTE | 2019-09-07 05:05 | NUR ---
LABS DRAWN IV STARTEED CHEST X RAY COMPLETE DR MARINELLI AT BEDSIDE
--- NOTE | 2019-09-07 05:22 | NUR ---
PT REPORTS SHE HAS BEEN OFF HER [facility] MEDS "FEW MONTHS"
[2019-09-07] MEDS ORDERED: FEXOFENADINE HCL 60 MG (05:26)
[2019-09-07] MEDS ORDERED: ALBUTEROL SUL 90 MCG (05:26)
[2019-09-07] MEDS ORDERED: POLYETHYLENE GLYCOL 3350 POWD (05:26)
[2019-09-07] MEDS ORDERED: SUMATRIPTAN SUCCINAT (05:26)
[2019-09-07] MEDS ORDERED: OMEPRAZOLE 20 MG (05:26)
[2019-09-07] MEDS ORDERED: DIVALPROEX SODIUM 500 MG (05:26)
[2019-09-07] MEDS ORDERED: TOPIRAMATE 50 MG (05:26)
[2019-09-07 05:29] LABS: BASOPHILS # (AUTO) 0.1 X10'3 (0-0.2); BASOPHILS % (AUTO) 1.1 % (0-1); EOSINOPHILS # (AUTO) 0.2 X10'3 (0-0.9); HEMATOCRIT 40.7 % (35.0-45.0); HEMOGLOBIN 13.6 g/dl (12.0-16.0); LYMPHOCYTES # (AUTO) 1.8 X10'3 (1.1-4.8); LYMPHOCYTES % (AUTO) 31.1 % (21-51); MEAN CORPUSCULAR HEMOGLOBIN 30.3 PG (27.0-31.0); MEAN CORPUSCULAR HGB CONC 33.5 g/dL (33.0-36.5); MEAN CORPUSCULAR VOLUME 90.4 FL (78-98); MEAN PLATELET VOLUME 8.6 FL (7.4-10.4); MONOCYTES # (AUTO) 0.6 X10'3 (0-0.9); NEUTROPHILS # (AUTO) 3.1 X10'3 (1.8-7.7); NEUTROPHILS % (AUTO) 52.8 % (42-75); PLATELET COUNT 313 X10'3 (140-440); RED CELL DISTRIBUTION WIDTH 13.9 % (11.5-14.5); WHITE BLOOD COUNT 5.8 X10'3 (4.5-11.0)
[2019-09-07 05:37] LABS: ALANINE AMINOTRANSFERASE 14 U/L (12-78); ALBUMIN 4.2 G/DL (3.4-5.0); ALBUMIN/GLOBULIN RATIO 1.2 (1.1-1.5); ALKALINE PHOSPHATASE 67 IU/L (46-116); ANION GAP 9 (8-16); ASPARTATE AMINO TRANSFERASE 14 U/L (10-37); BILIRUBIN,TOTAL 0.5 MG/DL (0.1-1.0); BLOOD UREA NITROGEN 12 MG/DL (7-18); BUN/CREATININE RATIO 12.1 (6.6-38.0); CALCIUM 8.9 MG/DL (8.5-10.1); CHLORIDE 101 MMOL/L (99-107); CREATININE 0.99 MG/DL (0.40-0.90); ETHANOL < 0.010 GM/DL (0.0-0.010); GLUCOSE 98 MG/DL (70-104); POTASSIUM 3.5 MMOL/L (3.5-5.1); SODIUM 138 MMOL/L (135-145); TOTAL CARBON DIOXIDE 27.6 MMOL/L (24-32); TOTAL PROTEIN 7.8 G/DL (6.4-8.2); eGFR 59 ML/MIN
[2019-09-07 06:01] VITALS: BP 161/90
== END 2019-09-07 05:57 | disposition home or self-care (01) ==
LOC: ER 04:59
DX: F41.0 Panic disorder [episodic paroxysmal anxiety] (principal); F19.10 Other psychoactive substance abuse, uncomplicated; G43.909 Migraine, unspecified, not intractable, without status migrainosus; E78.00 Pure hypercholesterolemia, unspecified; J45.909 Unspecified asthma, uncomplicated; K21.9 Gastro-esophageal reflux disease without esophagitis; F31.9 Bipolar disorder, unspecified; F20.9 Schizophrenia, unspecified; F12.90 Cannabis use, unspecified, uncomplicated; F15.90 Other stimulant use, unspecified, uncomplicated; Z56.0 Unemployment, unspecified; Z98.51 Tubal ligation status; Z79.899 Other long term (current) drug therapy; Z88.8 Allergy status to other drugs, medicaments and biological substances
CPT/HCPCS: 36415; 71045; 80053; 80320; 82948; 85025; 93005; 96374; 99284; J2060; J7030

== ENCOUNTER 2019-09-25 19:33 | Emergency (ER) | payer MEDICAID ==
[~2019-09-25] VITALS: Ht 165.1 cm; Wt 66.8 kg
[~2019-09-25 19:33] MED LIST changes: +ALBUTEROL SUL 90 MCG; -ARIP5TAB14 PO; +ARIP5TAB4 PO; +DIVALPROEX SODIUM 500 MG; +FEXOFENADINE HCL 60 MG; -KEN0.1O; +OMEPRAZOLE 20 MG; -PENI500T2 PO; +POLYETHYLENE GLYCOL 3350 POWD; -SIMV-42 PO; +SIMV20TA5 PO; +SUMATRIPTAN SUCCINAT; +TOPIRAMATE 50 MG
[2019-09-25 19:46] VITALS: BP 133/89
== END 2019-09-25 22:01 | disposition left against medical advice (07) ==
LOC: ER 19:33
DX: R07.89 Other chest pain (principal); Z53.21 Procedure and treatment not carried out due to patient leaving prior to being seen by health care provider
CPT/HCPCS: 93005

== ENCOUNTER 2019-10-22 05:17 | Emergency (ER) | payer MEDICAID ==
[~2019-10-22] VITALS: Ht 165.1 cm; Wt 57.7 kg
[~2019-10-22 05:17] MED LIST changes: +ARIP5TAB14 PO; -ARIP5TAB4 PO; +SIMV-42 PO; -SIMV20TA5 PO
[2019-10-22 05:21] VITALS: BP 167/74
[2019-10-22] MEDS ORDERED: HYDR28CR14 TOP (05:33)
== END 2019-10-22 05:38 | disposition home or self-care (01) ==
LOC: ER 05:17
DX: R21 Rash and other nonspecific skin eruption (principal); G43.909 Migraine, unspecified, not intractable, without status migrainosus; E78.00 Pure hypercholesterolemia, unspecified; J45.909 Unspecified asthma, uncomplicated; K21.9 Gastro-esophageal reflux disease without esophagitis; F41.9 Anxiety disorder, unspecified; F31.9 Bipolar disorder, unspecified; F20.9 Schizophrenia, unspecified; F12.90 Cannabis use, unspecified, uncomplicated; F15.90 Other stimulant use, unspecified, uncomplicated; Z56.0 Unemployment, unspecified; Z98.51 Tubal ligation status; Z88.8 Allergy status to other drugs, medicaments and biological substances; Z79.899 Other long term (current) drug therapy
CPT/HCPCS: 99282

== ENCOUNTER 2019-10-22 21:06 | Emergency (ER) | payer MEDICAID ==
[~2019-10-22] VITALS: Ht 165.1 cm; Wt 57.7 kg
[~2019-10-22 21:06] MED LIST changes: +HYDR28CR14 TOP
[2019-10-22 21:12] VITALS: BP 131/66
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
== END 2019-10-22 21:46 | disposition home or self-care (01) ==
LOC: ER 21:07
DX: F15.10 Other stimulant abuse, uncomplicated (principal); G43.909 Migraine, unspecified, not intractable, without status migrainosus; E78.00 Pure hypercholesterolemia, unspecified; J45.909 Unspecified asthma, uncomplicated; K21.9 Gastro-esophageal reflux disease without esophagitis; F41.9 Anxiety disorder, unspecified; F31.9 Bipolar disorder, unspecified; F20.9 Schizophrenia, unspecified; F12.90 Cannabis use, unspecified, uncomplicated; F10.99 Alcohol use, unspecified with unspecified alcohol-induced disorder; Z98.51 Tubal ligation status; Z56.0 Unemployment, unspecified; Z88.8 Allergy status to other drugs, medicaments and biological substances; Z79.899 Other long term (current) drug therapy; Y90.9 Presence of alcohol in blood, level not specified
CPT/HCPCS: 99283

== ENCOUNTER 2019-12-07 14:30 | Emergency (ER) | payer MEDICAID | END 2019-12-07 17:00 | disposition left against medical advice (07) | LOC: ER 14:31 | DX: Z00.8 Encounter for other general examination (principal); Z53.21 Procedure and treatment not carried out due to patient leaving prior to being seen by health care provider ==

== ENCOUNTER 2020-01-14 02:46 | Emergency (ER) | payer MEDICAID ==
[~2020-01-14] VITALS: Ht 165.1 cm; Wt 68.2 kg
[2020-01-14] MEDS ORDERED: aspirin 81mg tab.chew PO ONE (02:55)
[2020-01-14] MEDS ORDERED: ARIPIPRAZOLE 10 MG TABLET PO SCH (03:04)
[2020-01-14 03:09] VITALS: BP 127/72
== END 2020-01-14 03:11 | disposition home or self-care (01) ==
LOC: ER 02:46
DX: R07.89 Other chest pain (principal); G43.909 Migraine, unspecified, not intractable, without status migrainosus; E78.00 Pure hypercholesterolemia, unspecified; J45.909 Unspecified asthma, uncomplicated; K21.9 Gastro-esophageal reflux disease without esophagitis; F41.9 Anxiety disorder, unspecified; F31.9 Bipolar disorder, unspecified; F20.9 Schizophrenia, unspecified; F17.210 Nicotine dependence, cigarettes, uncomplicated; F12.90 Cannabis use, unspecified, uncomplicated; F15.90 Other stimulant use, unspecified, uncomplicated; Z98.51 Tubal ligation status; Z72.89 Other problems related to lifestyle; Z56.0 Unemployment, unspecified; Z88.8 Allergy status to other drugs, medicaments and biological substances; Z79.899 Other long term (current) drug therapy
CPT/HCPCS: 93005; 99283

== ENCOUNTER 2020-10-08 13:20 | Emergency (ER) | payer MEDICAID ==
[~2020-10-08] VITALS: Ht 165.1 cm; Wt 50.0 kg
[~2020-10-08 13:20] MED LIST changes: +MELA3TAB39 PO; -MELA3TAB64 PO
[2020-10-08 13:26] VITALS: BP 138/89
[2020-10-08] MEDS ORDERED: HYDROcodone/acetaminophen 5mg/325mg tablet PO ONE (13:30)
== END 2020-10-08 13:43 | disposition home or self-care (01) ==
LOC: ER 13:20
DX: M79.641 Pain in right hand (principal); R50.9 Fever, unspecified; G43.909 Migraine, unspecified, not intractable, without status migrainosus; E78.00 Pure hypercholesterolemia, unspecified; J45.909 Unspecified asthma, uncomplicated; K21.9 Gastro-esophageal reflux disease without esophagitis; F41.9 Anxiety disorder, unspecified; F31.9 Bipolar disorder, unspecified; F20.9 Schizophrenia, unspecified; F17.210 Nicotine dependence, cigarettes, uncomplicated; F12.90 Cannabis use, unspecified, uncomplicated; F15.90 Other stimulant use, unspecified, uncomplicated; Z98.51 Tubal ligation status; Z72.89 Other problems related to lifestyle; Z56.0 Unemployment, unspecified; Z88.8 Allergy status to other drugs, medicaments and biological substances; Z79.899 Other long term (current) drug therapy
CPT/HCPCS: 99283

== ENCOUNTER 2020-12-10 23:51 | Emergency (ER) | payer MEDICAID ==
[~2020-12-10] VITALS: Ht 165.1 cm; Wt 68.0 kg
[2020-12-10 23:58] VITALS: BP 109/65
== END 2020-12-11 00:51 | disposition left against medical advice (07) ==
LOC: ER 23:52
DX: R10.9 Unspecified abdominal pain (principal); Z53.21 Procedure and treatment not carried out due to patient leaving prior to being seen by health care provider

== ENCOUNTER 2021-01-11 19:07 | Emergency (ER) | payer MEDICAID ==
[~2021-01-11] VITALS: Ht 165.1 cm; Wt 62.8 kg
[2021-01-11 19:36] VITALS: BP 136/87
== END 2021-01-11 20:29 | disposition home or self-care (01) ==
LOC: ER 19:08
DX: G56.01 Carpal tunnel syndrome, right upper limb (principal); R20.0 Anesthesia of skin; G43.909 Migraine, unspecified, not intractable, without status migrainosus; E78.00 Pure hypercholesterolemia, unspecified; J45.909 Unspecified asthma, uncomplicated; K21.9 Gastro-esophageal reflux disease without esophagitis; F41.9 Anxiety disorder, unspecified; F20.9 Schizophrenia, unspecified; F12.90 Cannabis use, unspecified, uncomplicated; F15.90 Other stimulant use, unspecified, uncomplicated; Z98.51 Tubal ligation status; Z72.89 Other problems related to lifestyle; Z56.0 Unemployment, unspecified; Z88.8 Allergy status to other drugs, medicaments and biological substances; Z79.2 Long term (current) use of antibiotics; Z79.899 Other long term (current) drug therapy
CPT/HCPCS: 99281

== ENCOUNTER 2021-06-21 20:19 | Emergency (ER) | payer MEDICAID ==
[~2021-06-21] VITALS: Ht 165.1 cm; Wt 62.8 kg
[~2021-06-21 20:19] MED LIST changes: -CALC-829 PO; +CALC-951 PO
[2021-06-21 20:33] VITALS: BP 158/102
== END 2021-06-21 20:56 | disposition left against medical advice (07) ==
LOC: ER 20:19
DX: R07.89 Other chest pain (principal); Z53.21 Procedure and treatment not carried out due to patient leaving prior to being seen by health care provider
CPT/HCPCS: 93005

== ENCOUNTER 2021-06-22 20:12 | Emergency (ER) | payer MEDICAID ==
[~2021-06-22] VITALS: Ht 165.1 cm; Wt 81.8 kg
[2021-06-22 20:13] VITALS: BP 140/80
--- NOTE | 2021-06-22 22:00 | NUR ---
PATIENT IS RESTLESS IN ROOM. DENIES SI OR HI AT THIS TIME. STATES SHE SMOKED METH EARLIER AND WAS NOT FEELING WELL. HX SCHIZOPHRENIA. DISPLAYING SOME PARANOIA ON AND OFF.
--- NOTE | 2021-06-22 22:21 | NUR ---
Pt states she smoked meth earlier this evening and that she was "hearing things", but denies VH. Also denies SI/HI. No self-injurious behavior observed or reported.
--- NOTE | 2021-06-22 22:25 | NUR ---
PATIENT STATES SHE IS READY TO LEAVE AND WAS VERBALLY DC PER ER MD. DEPARTED AMBULATORY IN STABLE CONDITION.
== END 2021-06-22 22:26 | disposition home or self-care (01) ==
LOC: ER 20:12
DX: F15.10 Other stimulant abuse, uncomplicated (principal); F20.9 Schizophrenia, unspecified; E78.00 Pure hypercholesterolemia, unspecified; J45.909 Unspecified asthma, uncomplicated; K21.9 Gastro-esophageal reflux disease without esophagitis; G43.909 Migraine, unspecified, not intractable, without status migrainosus; F41.9 Anxiety disorder, unspecified; F12.10 Cannabis abuse, uncomplicated; Z88.8 Allergy status to other drugs, medicaments and biological substances; Z79.899 Other long term (current) drug therapy
CPT/HCPCS: 99283

== ENCOUNTER 2021-11-18 13:11 | Emergency (ER) | payer MEDICAID ==
[~2021-11-18] VITALS: Ht 165.1 cm; Wt 81.0 kg
[2021-11-18 13:18] VITALS: BP 145/91
== END 2021-11-18 17:18 | disposition left against medical advice (07) ==
LOC: ER 13:11
DX: R60.0 Localized edema (principal); Z53.21 Procedure and treatment not carried out due to patient leaving prior to being seen by health care provider

== ENCOUNTER 2021-11-19 18:29 | Emergency (ER) | payer MEDICAID | END 2021-11-19 20:19 | disposition left against medical advice (07) | LOC: ER 18:30 | DX: Z53.21 Procedure and treatment not carried out due to patient leaving prior to being seen by health care provider (principal) ==

== ENCOUNTER 2022-03-10 10:18 | Emergency (ER) | payer MEDICAID ==
[~2022-03-10] VITALS: Ht 165.1 cm; Wt 62.8 kg
[~2022-03-10 10:18] MED LIST changes: +FEXO-353 PO; -FEXO-61 PO; -OMEP-50 PO; +OMEP20CA16 PO
[2022-03-10 10:23] VITALS: BP 121/79
[2022-03-10 11:45] LABS: BASOPHILS # (AUTO) 0.1 X10'3 (0-0.2); BASOPHILS % (AUTO) 1.4 % (0-1); EOSINOPHILS # (AUTO) 0.4 X10'3 (0-0.9); EOSINOPHILS % (AUTO) 5.9 % (0-6); HEMATOCRIT 37.3 % (35.0-45.0); HEMOGLOBIN 12.2 g/dl (12.0-16.0); LYMPHOCYTES # (AUTO) 1.3 X10'3 (1.1-4.8); LYMPHOCYTES % (AUTO) 21.3 % (21-51); MEAN CORPUSCULAR HEMOGLOBIN 28.2 PG (27.0-31.0); MEAN CORPUSCULAR HGB CONC 32.8 g/dL (33.0-36.5); MEAN CORPUSCULAR VOLUME 86.1 FL (78-98); MEAN PLATELET VOLUME 8.8 FL (7.4-10.4); MONOCYTES # (AUTO) 0.6 X10'3 (0-0.9); MONOCYTES % (AUTO) 9.4 % (2-12); NEUTROPHILS # (AUTO) 3.9 X10'3 (1.8-7.7); PLATELET COUNT 344 X10'3 (140-440); RED BLOOD COUNT 4.33 X10'6 (4.20-5.60); RED CELL DISTRIBUTION WIDTH 14.5 % (11.5-14.5); WHITE BLOOD COUNT 6.3 X10'3 (4.5-11.0)
[2022-03-10 11:52] LABS: ALANINE AMINOTRANSFERASE 11 U/L (12-78); ALBUMIN/GLOBULIN RATIO 1.1 (1.1-1.5); ALKALINE PHOSPHATASE 72 IU/L (46-116); ANION GAP 6 (8-16); ASPARTATE AMINO TRANSFERASE 12 U/L (10-37); BILIRUBIN,TOTAL 0.2 MG/DL (0.1-1.0); BLOOD UREA NITROGEN 20 MG/DL (7-18); CALCIUM 9.1 MG/DL (8.5-10.1); CHLORIDE 104 MMOL/L (99-107); CREATININE 1.05 MG/DL (0.40-0.90); GLUCOSE 93 MG/DL (70-104); POTASSIUM 3.5 MMOL/L (3.5-5.1); SODIUM 138 MMOL/L (135-145); TOTAL CARBON DIOXIDE 27.7 MMOL/L (24-32); TOTAL PROTEIN 7.5 G/DL (6.4-8.2); eGFR 55 ML/MIN
[2022-03-10] MEDS ORDERED: FURO-150 PO (12:31)
[2022-03-10] MEDS ORDERED: furosemide 20MG tablet PO ONE (12:35)
== END 2022-03-10 12:44 | disposition home or self-care (01) ==
LOC: ER 10:19
DX: R60.0 Localized edema (principal); G43.909 Migraine, unspecified, not intractable, without status migrainosus; E78.00 Pure hypercholesterolemia, unspecified; J45.909 Unspecified asthma, uncomplicated; K21.9 Gastro-esophageal reflux disease without esophagitis; F41.9 Anxiety disorder, unspecified; F31.9 Bipolar disorder, unspecified; F20.9 Schizophrenia, unspecified; F12.90 Cannabis use, unspecified, uncomplicated; F15.90 Other stimulant use, unspecified, uncomplicated; Z98.51 Tubal ligation status; Z72.89 Other problems related to lifestyle; Z56.0 Unemployment, unspecified; Z88.8 Allergy status to other drugs, medicaments and biological substances; Z79.2 Long term (current) use of antibiotics; Z79.899 Other long term (current) drug therapy
CPT/HCPCS: 36415; 80053; 83880; 85025; 99283

== ENCOUNTER 2022-08-11 06:13 | Emergency (ER) | payer MEDICAID ==
[~2022-08-11] VITALS: Ht 165.1 cm; Wt 50.0 kg
[2022-08-11 06:22] VITALS: BP 126/108
[2022-08-11] MEDS ORDERED: CIPR7.5D OT ×3 (09:42→09:56)
== END 2022-08-11 09:59 | disposition home or self-care (01) ==
LOC: ER 06:13
DX: H61.21 Impacted cerumen, right ear (principal); E78.00 Pure hypercholesterolemia, unspecified; K21.9 Gastro-esophageal reflux disease without esophagitis; J45.909 Unspecified asthma, uncomplicated; F31.9 Bipolar disorder, unspecified; F20.9 Schizophrenia, unspecified; F12.10 Cannabis abuse, uncomplicated; F15.10 Other stimulant abuse, uncomplicated; Z56.0 Unemployment, unspecified; Z88.1 Allergy status to other antibiotic agents; Z79.899 Other long term (current) drug therapy; Z79.1 Long term (current) use of non-steroidal anti-inflammatories (NSAID)
CPT/HCPCS: 99283

== ENCOUNTER 2022-08-22 05:06 | Emergency (ER) | payer MEDICAID ==
[~2022-08-22 05:06] MED LIST changes: +CIPR7.5D OT
== END 2022-08-22 05:24 | disposition left against medical advice (07) ==
LOC: ER 05:07
DX: F29 Unspecified psychosis not due to a substance or known physiological condition (principal); Z53.21 Procedure and treatment not carried out due to patient leaving prior to being seen by health care provider

== ENCOUNTER 2022-08-22 21:41 | Emergency (ER) | payer MEDICAID ==
[~2022-08-22] VITALS: Ht 165.1 cm; Wt 61.0 kg
[2022-08-22 21:47] VITALS: BP 138/84
--- NOTE | 2022-08-23 01:15 | NUR ---
NO ANSWER [id number]
== END 2022-08-23 02:08 | disposition left against medical advice (07) ==
LOC: ER 21:41
DX: A05.9 Bacterial foodborne intoxication, unspecified (principal); Z53.21 Procedure and treatment not carried out due to patient leaving prior to being seen by health care provider

== ENCOUNTER 2022-08-24 19:54 | Emergency (ER) | payer MEDICAID ==
[~2022-08-24] VITALS: Ht 170.2 cm; Wt 46.0 kg
[2022-08-24 19:57] VITALS: BP 147/91
== END 2022-08-24 22:55 | disposition left against medical advice (07) ==
LOC: ER 19:55
DX: R07.9 Chest pain, unspecified (principal); Z53.21 Procedure and treatment not carried out due to patient leaving prior to being seen by health care provider
CPT/HCPCS: 71045

== ENCOUNTER 2022-10-11 16:20 | Emergency (ER) | payer MEDICAID ==
[~2022-10-11] VITALS: Ht 165.1 cm; Wt 53.2 kg
[2022-10-11 17:15] VITALS: BP 125/67
== END 2022-10-11 21:00 | disposition left against medical advice (07) ==
LOC: ER 16:20
DX: R06.02 Shortness of breath (principal); Z53.21 Procedure and treatment not carried out due to patient leaving prior to being seen by health care provider
CPT/HCPCS: 71046

== ENCOUNTER 2023-01-01 18:10 | Emergency (ER) | payer MEDICAID ==
[~2023-01-01] VITALS: Ht 165.1 cm; Wt 55.0 kg
[2023-01-01 18:26] VITALS: BP 132/66
== END 2023-01-01 20:50 | disposition home or self-care (01) ==
LOC: ER 18:11
DX: R60.9 Edema, unspecified (principal); M25.471 Effusion, right ankle; M25.472 Effusion, left ankle; G43.909 Migraine, unspecified, not intractable, without status migrainosus; E78.00 Pure hypercholesterolemia, unspecified; J45.909 Unspecified asthma, uncomplicated; K21.9 Gastro-esophageal reflux disease without esophagitis; F31.9 Bipolar disorder, unspecified; F12.90 Cannabis use, unspecified, uncomplicated; F15.20 Other stimulant dependence, uncomplicated; Z56.0 Unemployment, unspecified
CPT/HCPCS: 99281

== ENCOUNTER 2023-02-17 08:57 | Emergency (ER) | payer MEDICAID ==
[~2023-02-17] VITALS: Ht 165.1 cm; Wt 49.6 kg
[~2023-02-17 08:57] MED LIST changes: +TOPI-253 PO; -TOPI50TA24 PO
[2023-02-17 09:02] VITALS: BP 137/99
== END 2023-02-17 10:37 | disposition left against medical advice (07) ==
LOC: ER 08:57
DX: F15.90 Other stimulant use, unspecified, uncomplicated (principal); R00.2 Palpitations; R00.0 Tachycardia, unspecified; G43.909 Migraine, unspecified, not intractable, without status migrainosus; E78.00 Pure hypercholesterolemia, unspecified; J45.909 Unspecified asthma, uncomplicated; K21.9 Gastro-esophageal reflux disease without esophagitis; F41.9 Anxiety disorder, unspecified; F31.9 Bipolar disorder, unspecified; F20.9 Schizophrenia, unspecified; F12.90 Cannabis use, unspecified, uncomplicated; Z56.0 Unemployment, unspecified; Z72.89 Other problems related to lifestyle; Z79.899 Other long term (current) drug therapy
CPT/HCPCS: 99283

== ENCOUNTER 2023-04-10 11:28 | Outpatient (CLI) | payer MEDICAID | END 2023-04-10 23:59 | disposition home or self-care (01) | LOC: RAD 11:28 | PROVIDERS: ATTEND Nurse Practitioner Psychiatric/Mental Health | DX: I51.7 Cardiomegaly (principal); Z79.899 Other long term (current) drug therapy | CPT/HCPCS: 93005 ==

== ENCOUNTER 2023-06-09 19:24 | Emergency (ER) | payer MEDICAID ==
[~2023-06-09] VITALS: Ht 165.1 cm; Wt 49.1 kg
[2023-06-09 19:37] VITALS: BP 135/85
== END 2023-06-09 19:59 | disposition home or self-care (01) ==
LOC: ER 19:24
DX: H11.31 Conjunctival hemorrhage, right eye (principal); G43.909 Migraine, unspecified, not intractable, without status migrainosus; E78.00 Pure hypercholesterolemia, unspecified; J45.909 Unspecified asthma, uncomplicated; K21.9 Gastro-esophageal reflux disease without esophagitis; F31.9 Bipolar disorder, unspecified; F12.90 Cannabis use, unspecified, uncomplicated; F15.20 Other stimulant dependence, uncomplicated; Z98.51 Tubal ligation status; Z56.0 Unemployment, unspecified
CPT/HCPCS: 99281

== ENCOUNTER 2023-07-21 17:27 | Emergency (ER) | payer MEDICAID ==
[~2023-07-21] VITALS: Ht 165.1 cm; Wt 45.5 kg
[2023-07-21 17:36] VITALS: BP 136/82; PULSE 105; RESP 16; TEMP 98; O2SAT 94
== END 2023-07-21 21:24 | disposition left against medical advice (07) ==
LOC: ER 17:27
DX: K08.89 Other specified disorders of teeth and supporting structures (principal); G43.909 Migraine, unspecified, not intractable, without status migrainosus; E78.00 Pure hypercholesterolemia, unspecified; J45.909 Unspecified asthma, uncomplicated; F41.9 Anxiety disorder, unspecified; F15.90 Other stimulant use, unspecified, uncomplicated; F12.90 Cannabis use, unspecified, uncomplicated; Z56.0 Unemployment, unspecified; Z72.89 Other problems related to lifestyle; Z98.51 Tubal ligation status; Z79.899 Other long term (current) drug therapy; Z79.2 Long term (current) use of antibiotics; W19.XXXA Unspecified fall, initial encounter; Y93.89 Activity, other specified; Y92.89 Other specified places as the place of occurrence of the external cause; Y99.8 Other external cause status
CPT/HCPCS: 99281

== ENCOUNTER 2024-01-27 10:13 | Emergency (ER) | payer MEDICAID ==
[~2024-01-27] VITALS: Ht 165.1 cm; Wt 46.9 kg
[~2024-01-27 10:13] MED LIST changes: -TOPI-253 PO; +TOPI-95 PO
[2024-01-27 10:17] VITALS: BP 151/92; PULSE 103; RESP 16; TEMP 97.4; O2SAT 98
== END 2024-01-27 11:39 | disposition home or self-care (01) ==
LOC: ER 10:13
DX: M79.644 Pain in right finger(s) (principal); G43.909 Migraine, unspecified, not intractable, without status migrainosus; E78.00 Pure hypercholesterolemia, unspecified; J45.909 Unspecified asthma, uncomplicated; K21.9 Gastro-esophageal reflux disease without esophagitis; F31.9 Bipolar disorder, unspecified; F20.9 Schizophrenia, unspecified; F12.10 Cannabis abuse, uncomplicated; F15.10 Other stimulant abuse, uncomplicated; Z59.00 Homelessness unspecified; Z79.899 Other long term (current) drug therapy
CPT/HCPCS: 73630; 99283

== ENCOUNTER → 2024-05-31 | Outpatient (CLI) | payer MEDICAID ==
[~2024-05-31] MED LIST changes: +ARIP5TAB12 PO; -ARIP5TAB14 PO
== END | disposition home or self-care (01) ==
LOC: RAD 10:41
PROVIDERS: ATTEND Student in an Organized Health Care Education/Training Program
DX: I51.7 Cardiomegaly (principal); Z79.899 Other long term (current) drug therapy
CPT/HCPCS: 93005

== ENCOUNTER 2024-09-03 10:40 | Inpatient (IN) | payer MEDICAID ==
[~2024-09-03] VITALS: Ht 165.1 cm; Wt 49.9 kg
[2024-09-03] VITALS (31 sets, daily range): BP systolic 140–176; BP diastolic 74–99; PULSE 77–126; RESP 10–24; TEMP 97.8–98.2; O2SAT 95–100
[2024-09-03] MEDS: normal saline 1000ml 1,000 ML IV ONE ×2 (11:07→12:27)
[2024-09-03 11:09] LABS: BASOPHILS # (AUTO) 0.1 X10'3 (0-0.2); BASOPHILS % (AUTO) 0.4 % (0-1); EOSINOPHILS % (AUTO) 0.2 % (0-6); HEMATOCRIT 36.3 % (35.0-45.0); HEMOGLOBIN 11.5 g/dl (12.0-16.0); LYMPHOCYTES # (AUTO) 1.3 X10'3 (1.1-4.8); LYMPHOCYTES % (AUTO) 8.9 % (21-51); MEAN CORPUSCULAR HEMOGLOBIN 28.7 PG (27.0-31.0); MEAN CORPUSCULAR HGB CONC 31.8 g/dL (33.0-36.5); MEAN CORPUSCULAR VOLUME 90.2 FL (78-98); MEAN PLATELET VOLUME 8.5 FL (7.4-10.4); MONOCYTES # (AUTO) 0.4 X10'3 (0-0.9); NEUTROPHILS # (AUTO) 12.8 X10'3 (1.8-7.7); NEUTROPHILS % (AUTO) 87.5 % (42-75); PLATELET COUNT 362 X10'3 (140-440); RED BLOOD COUNT 4.02 X10'6 (4.20-5.60); RED CELL DISTRIBUTION WIDTH 13.8 % (11.5-14.5); WHITE BLOOD COUNT 14.7 X10'3 (4.5-11.0)
[2024-09-03 11:26] LABS: ALBUMIN 3.1 G/DL (3.4-5.0); ANION GAP 12 (8-16); BLOOD UREA NITROGEN 15 MG/DL (7-18); BUN/CREATININE RATIO 8.6 (10.0-20.0); CALCIUM 9.3 MG/DL (8.5-10.1); CHLORIDE 105 MMOL/L (99-107); CREATININE 1.75 MG/DL (0.40-0.90); GLUCOSE 224 MG/DL (70-104); POTASSIUM 4.1 MMOL/L (3.5-5.1); SODIUM 140 MMOL/L (135-145); TOTAL CARBON DIOXIDE 22.6 MMOL/L (24-32); eCRCL 28 ML/MIN; eGFR 30 ML/MIN
[2024-09-03] MEDS: morphine 2 MG/ML inj. syringe IV ONE (11:33)
[2024-09-03] MEDS ORDERED: iohexol 300mg/ml 100ml inj. ONE (12:03)
[2024-09-03 12:31] LABS: BILIRUBIN,URINE SMALL (Neg); CLARITY,URINE SLIGHTLY CLOUDY (Clear); COLOR,URINE AMBER (Yellow); GLUCOSE, URINE NEGATIVE (Neg); KETONES,URINE NEGATIVE (Neg); LEUKOCYTE ESTERASE ,URINE NEGATIVE (Neg); NITRITES, URINE NEGATIVE (Neg); OCCULT BLOOD,URINE NEGATIVE (Neg); PROTEIN,URINE 100 mg/dl (Neg)
[2024-09-03 12:37] LABS: D-DIMER 1.23 MG/L FEU (0-0.50)
[2024-09-03 12:40] LABS: UA COLLECTION TYPE CLN CATCH MIDSTREAM
[2024-09-03 12:42] LABS: BACTERIA,URINE FEW /HPF (Neg); MUCUS STRANDS MODERATE /LPF (Neg); SQUAMOUS EPITHELIAL CELL,UR MANY /LPF (FEW); WBC,URINE 0-4 /HPF (0-4)
[2024-09-03 12:45] LABS: URINE AMPHETAMINE SCREEN POSITIVE (Neg); URINE BARBITUATE SCREEN NEGATIVE (Neg); URINE BENZODIAZEPINES SCREEN NEGATIVE (Neg); URINE CANNABINOID SCREEN POSITIVE (Neg); URINE COCAINE SCREEN NEGATIVE (Neg); URINE METHADONE SCREEN NEGATIVE (Neg); URINE OPIATE SCREEN NEGATIVE (Neg); URINE PHENCYCLIDINE SCREEN NEGATIVE (Neg)
[2024-09-03] MEDS: cefepime 2g/NS 100ml ADVANTAGE 100 ML IV SCH (12:49)
[2024-09-03] MEDS: normal saline 1000ml 1,000 ML IV SCH ×2 (12:53→16:50)
[2024-09-03 13:24] LABS: ALBUMIN 2.6 G/DL (3.4-5.0); ALBUMIN/GLOBULIN RATIO 0.9 (1.1-1.5); ALKALINE PHOSPHATASE 51 IU/L (46-116); ANION GAP 5 (8-16); ASPARTATE AMINO TRANSFERASE 8 U/L (10-37); BILIRUBIN,TOTAL 0.2 MG/DL (0.1-1.0); BLOOD UREA NITROGEN 16 MG/DL (7-18); BUN/CREATININE RATIO 11.1 (10.0-20.0); CALCIUM 8.2 MG/DL (8.5-10.1); CHLORIDE 109 MMOL/L (99-107); CREATININE 1.44 MG/DL (0.40-0.90); GLUCOSE 114 MG/DL (70-104); POTASSIUM 4.5 MMOL/L (3.5-5.1); SODIUM 140 MMOL/L (135-145); TOTAL CARBON DIOXIDE 25.7 MMOL/L (24-32); TOTAL PROTEIN 5.5 G/DL (6.4-8.2); eCRCL 34 ML/MIN; eGFR 38 ML/MIN
[2024-09-03 13:35] LABS: ALANINE AMINOTRANSFERASE 6 U/L (12-78)
[2024-09-03] MEDS ORDERED: GABA-530 PO (13:53)
[2024-09-03] MEDS ORDERED: sevoflurane 250ml liquid IH ONE (16:47)
[2024-09-03] MEDS ORDERED: magnesium sulf-water 2g/50mL 50 ML IV PRN (16:50)
[2024-09-03] MEDS ORDERED: HYDROmorphone/PF 0.2 MG/ML SYRINGE IV PRN ×2 (16:50→17:05)
[2024-09-03] MEDS ORDERED: magnesium sulf-water 4G/100mL 100 ML IV PRN (16:50)
[2024-09-03] MEDS ORDERED: potassium Cl 40MEQ/1/2NS 520ml 520 ML IV PRN (16:50)
[2024-09-03] MEDS ORDERED: potassium Cl 20 mEq SR tablet PO PRN (16:50)
[2024-09-03] MEDS ORDERED: midazolam 1 mg/ML 2ml injection ONE (17:00)
[2024-09-03] MEDS: BUPIVAcaine/PF 2.5mg/ml (0.25%) 10ml vial ONE (17:03)
[2024-09-03] MEDS: BUPIVACAINE liposomal/PF 13.3 MG/ML vial IM ONE (17:04)
[2024-09-03] MEDS ORDERED: proCHLORperazine 10 MG/2 ml inj IV PRN (17:05)
[2024-09-03] MEDS ORDERED: ondansetron/PF 4mg/2ml inj IV PRN (17:05)
[2024-09-03] MEDS ORDERED: morphine 2 MG/ML inj. syringe IV PRN (17:05)
[2024-09-03] MEDS ORDERED: hydrALAZINE 20mg/ml inj. IV PRN (17:05)
[2024-09-03] MEDS: ringers solution, lacted 1,000 ML IV SCH (17:05)
[2024-09-03] MEDS ORDERED: meperidine/PF 25mg/ml syringe IV PRN (17:05)
[2024-09-03] MEDS ORDERED: fentaNYL /PF 50mcg/ml 5ml ampule ONE (17:06)
[2024-09-03] MEDS: famotidine/PF 10 mg/ml inj IV ONE (17:36)
[2024-09-03] MEDS ORDERED: albumin (Human) 5% 250ml 250 ML IV ONE ×2 (17:45)
[2024-09-03] MEDS ORDERED: ceFOXitin 1000 MG inj ONE ×2 (17:58)
[2024-09-03] MEDS ORDERED: ePHEDrine 50MG/ML INJ. ONE (17:58)
[2024-09-03] MEDS ORDERED: LIDOcaine 2% (20mg/ml) 5ml vial ONE (17:58)
[2024-09-03] MEDS ORDERED: 0.9 % SODIUM CHLORIDE 10 ML VIAL ONE ×2 (17:58)
[2024-09-03] MEDS ORDERED: dexamethasone sod phosphate 4mg/ml inj. ONE (17:58)
[2024-09-03] MEDS ORDERED: ondansetron/PF 4mg/2ml inj ONE (17:58)
[2024-09-03] MEDS ORDERED: rocuronium 10mg/ml inj IV ONE (17:58)
[2024-09-03] MEDS ORDERED: propofol inj 20 ML IV ONE (17:58)
[2024-09-03] MEDS ORDERED: glycopyrrolate 0.2mg/ml inj ONE (18:26)
[2024-09-03] MEDS ORDERED: neostigmine methylsulfate 1 MG/ML 10ml vial ONE (18:26)
[2024-09-03] MEDS: morphine 4 MG/ML inj SYRINge IV PRN (18:41)
[2024-09-03] MEDS: acetaminophen 1,000mg/100ml IV 100 ML IV ONE (18:42)
[2024-09-03] MEDS: HYDROmorphone/PF 0.2 MG/ML SYRINGE IV PRN (18:50)
[2024-09-03] MEDS: labetalol 20mg/4ml (5mg/ml) syringe IV PRN (18:50)
[2024-09-03 18:56] LABS: ISTAT CREATININE 1.2 mg/dL (0.6-1.1); ISTAT IONIZED CALCIUM 1.15 mmol/L (1.03-1.32); ISTAT K 3.8 mmol/L (3.5-5.1); POC BUN/CREATININE RATIO 12.5 (6.6-38.0)
[2024-09-03] MEDS: K and/or MAG REPLACEMENT MC SCH (20:00)
[2024-09-04] VITALS (9 sets, daily range): BP systolic 125–153; BP diastolic 62–111; PULSE 70–109; RESP 12–19; TEMP 97.4–99.2; O2SAT 95–99
[2024-09-04] MEDS: piperacillin/tazo 3.375gm/50ml 50 ML IV SCH (00:56)
[2024-09-04] MEDS: HYDROmorphone inj. 0.5 MG/0.5 ML DISP.SYRIN IV PRN (01:10)
[2024-09-04] MEDS: cefepime 2g/NS 100ml ADVANTAGE 100 ML IV SCH (04:24)
[2024-09-04 06:39] LABS: BASOPHILS % (AUTO) 0.1 % (0-1); EOSINOPHILS % (AUTO) 0 % (0-6); HEMATOCRIT 27.8 % (35.0-45.0); HEMOGLOBIN 9.2 g/dl (12.0-16.0); LYMPHOCYTES # (AUTO) 0.6 X10'3 (1.1-4.8); LYMPHOCYTES % (AUTO) 3.6 % (21-51); MEAN CORPUSCULAR HEMOGLOBIN 29.7 PG (27.0-31.0); MEAN CORPUSCULAR HGB CONC 33.1 g/dL (33.0-36.5); MEAN CORPUSCULAR VOLUME 89.7 FL (78-98); MEAN PLATELET VOLUME 8.9 FL (7.4-10.4); MONOCYTES # (AUTO) 1.2 X10'3 (0-0.9); MONOCYTES % (AUTO) 7.4 % (2-12); NEUTROPHILS # (AUTO) 14.8 X10'3 (1.8-7.7); NEUTROPHILS % (AUTO) 88.9 % (42-75); PLATELET COUNT 209 X10'3 (140-440); RED CELL DISTRIBUTION WIDTH 13.4 % (11.5-14.5); WHITE BLOOD COUNT 16.7 X10'3 (4.5-11.0)
[2024-09-04 06:51] LABS: ANION GAP 7 (8-16); BLOOD UREA NITROGEN 22 MG/DL (7-18); BUN/CREATININE RATIO 15.8 (10.0-20.0); CALCIUM 8.3 MG/DL (8.5-10.1); CHLORIDE 112 MMOL/L (99-107); CREATININE 1.39 MG/DL (0.40-0.90); GLUCOSE 130 MG/DL (70-104); MAGNESIUM 1.2 MG/DL (1.5-2.4); POTASSIUM 4.6 MMOL/L (3.5-5.1); SODIUM 141 MMOL/L (135-145); TOTAL CARBON DIOXIDE 21.9 MMOL/L (24-32); eCRCL 35 ML/MIN; eGFR 39 ML/MIN
[2024-09-04] MEDS: magnesium Cl slow-release 64mg tablet PO PRN (08:09)
[2024-09-05] VITALS (9 sets, daily range): BP systolic 145–160; BP diastolic 75–92; PULSE 70–108; RESP 11–18; TEMP 97–98.8; O2SAT 94–100
[2024-09-05] MEDS: cefepime 2g/NS 100ml ADVANTAGE 100 ML IV SCH (01:05)
[2024-09-05 03:12] LABS: BASOPHILS # (AUTO) 0.1 X10'3 (0-0.2); BASOPHILS % (AUTO) 0.5 % (0-1); EOSINOPHILS # (AUTO) 0.1 X10'3 (0-0.9); EOSINOPHILS % (AUTO) 0.6 % (0-6); HEMATOCRIT 24.6 % (35.0-45.0); HEMOGLOBIN 8.2 g/dl (12.0-16.0); LYMPHOCYTES # (AUTO) 1.3 X10'3 (1.1-4.8); LYMPHOCYTES % (AUTO) 9.1 % (21-51); MEAN CORPUSCULAR HEMOGLOBIN 29.6 PG (27.0-31.0); MEAN CORPUSCULAR HGB CONC 33.5 g/dL (33.0-36.5); MEAN CORPUSCULAR VOLUME 88.4 FL (78-98); MEAN PLATELET VOLUME 8.5 FL (7.4-10.4); MONOCYTES % (AUTO) 7.1 % (2-12); NEUTROPHILS # (AUTO) 11.9 X10'3 (1.8-7.7); NEUTROPHILS % (AUTO) 82.7 % (42-75); PLATELET COUNT 184 X10'3 (140-440); RED BLOOD COUNT 2.78 X10'6 (4.20-5.60); RED CELL DISTRIBUTION WIDTH 13.4 % (11.5-14.5); WHITE BLOOD COUNT 14.3 X10'3 (4.5-11.0)
[2024-09-05 03:22] LABS: ALBUMIN 2.6 G/DL (3.4-5.0); ANION GAP 7 (8-16); BLOOD UREA NITROGEN 20 MG/DL (7-18); BUN/CREATININE RATIO 14.1 (10.0-20.0); CALCIUM 8.3 MG/DL (8.5-10.1); CHLORIDE 107 MMOL/L (99-107); CREATININE 1.42 MG/DL (0.40-0.90); GLUCOSE 103 MG/DL (70-104); MAGNESIUM 1.2 MG/DL (1.5-2.4); POTASSIUM 3.9 MMOL/L (3.5-5.1); SODIUM 139 MMOL/L (135-145); TOTAL CARBON DIOXIDE 24.9 MMOL/L (24-32); eCRCL 34 ML/MIN; eGFR 38 ML/MIN
[2024-09-05 17:30] LABS: HEMATOCRIT 24.2 % (35.0-45.0); HEMOGLOBIN 8.1 g/dl (12.0-16.0); MEAN CORPUSCULAR HEMOGLOBIN 29.4 PG (27.0-31.0); MEAN CORPUSCULAR HGB CONC 33.5 g/dL (33.0-36.5); MEAN CORPUSCULAR VOLUME 87.8 FL (78-98); MEAN PLATELET VOLUME 8.4 FL (7.4-10.4); PLATELET COUNT 194 X10'3 (140-440); RED BLOOD COUNT 2.76 X10'6 (4.20-5.60); RED CELL DISTRIBUTION WIDTH 13.4 % (11.5-14.5); WHITE BLOOD COUNT 14.8 X10'3 (4.5-11.0)
[2024-09-06] VITALS (8 sets, daily range): BP systolic 132–164; BP diastolic 72–88; PULSE 78–99; RESP 14–18; TEMP 98–98.6; O2SAT 95–100
[2024-09-06 05:55] LABS: BASOPHILS % (AUTO) 0.3 % (0-1); EOSINOPHILS # (AUTO) 0.2 X10'3 (0-0.9); EOSINOPHILS % (AUTO) 1.4 % (0-6); HEMATOCRIT 24.8 % (35.0-45.0); HEMOGLOBIN 8.3 g/dl (12.0-16.0); LYMPHOCYTES % (AUTO) 8.2 % (21-51); MEAN CORPUSCULAR HEMOGLOBIN 30.1 PG (27.0-31.0); MEAN CORPUSCULAR HGB CONC 33.7 g/dL (33.0-36.5); MEAN CORPUSCULAR VOLUME 89.4 FL (78-98); MEAN PLATELET VOLUME 8.4 FL (7.4-10.4); MONOCYTES # (AUTO) 0.8 X10'3 (0-0.9); MONOCYTES % (AUTO) 6.6 % (2-12); NEUTROPHILS # (AUTO) 10.3 X10'3 (1.8-7.7); NEUTROPHILS % (AUTO) 83.5 % (42-75); PLATELET COUNT 210 X10'3 (140-440); RED BLOOD COUNT 2.77 X10'6 (4.20-5.60); RED CELL DISTRIBUTION WIDTH 13.4 % (11.5-14.5); WHITE BLOOD COUNT 12.3 X10'3 (4.5-11.0)
[2024-09-06 05:58] LABS: ALBUMIN 2.6 G/DL (3.4-5.0); ANION GAP 6 (8-16); BLOOD UREA NITROGEN 12 MG/DL (7-18); BUN/CREATININE RATIO 10.3 (10.0-20.0); CALCIUM 8.5 MG/DL (8.5-10.1); CHLORIDE 106 MMOL/L (99-107); CREATININE 1.17 MG/DL (0.40-0.90); GLUCOSE 94 MG/DL (70-104); MAGNESIUM 1.2 MG/DL (1.5-2.4); POTASSIUM 3.2 MMOL/L (3.5-5.1); SODIUM 138 MMOL/L (135-145); TOTAL CARBON DIOXIDE 25.9 MMOL/L (24-32); eCRCL 42 ML/MIN; eGFR 48 ML/MIN
[2024-09-06 08:49] LABS: ISTAT HGB 6.8 g/dl (12.0-16.0)
[2024-09-06] MEDS: pantoprazole 40 MG vial IV SCH (09:35)
[2024-09-06] MEDS: potassium Cl 20 mEq SR tablet PO PRN (09:35)
[2024-09-06] MEDS ORDERED: pantoprazole 40MG/NS 100ML BAG 100 ML IV SCH (11:00)
[2024-09-06] MEDS ORDERED: morphine 2 MG/ML inj. syringe IV PRN (11:55)
[2024-09-06] MEDS ORDERED: morphine 4 MG/ML inj SYRINge IV PRN (11:55)
[2024-09-06] MEDS ORDERED: HYDROcodone/acetaminophen 10/325mg tab PO PRN (11:55)
[2024-09-06] MEDS ORDERED: HYDROcodone/acetaminophen 5mg/325mg tablet PO PRN (11:55)
[2024-09-06] MEDS: potassium Cl 20 mEq SR tablet PO ONE (21:05)
[2024-09-06] MEDS: magnesium hydroxide 30ml (MOM) UD suspension PO SCH (21:13)
[2024-09-06] MEDS: magnesium Cl slow-release 64mg tablet PO ONE (22:25)
[2024-09-07] VITALS (8 sets, daily range): BP systolic 128–140; BP diastolic 64–79; PULSE 74–87; RESP 15–18; TEMP 97.8–98.6; O2SAT 95–100
[2024-09-07 03:44] LABS: BASOPHILS % (AUTO) 0.4 % (0-1); EOSINOPHILS # (AUTO) 0.3 X10'3 (0-0.9); EOSINOPHILS % (AUTO) 3.3 % (0-6); HEMATOCRIT 25.8 % (35.0-45.0); HEMOGLOBIN 8.9 g/dl (12.0-16.0); LYMPHOCYTES # (AUTO) 1.3 X10'3 (1.1-4.8); LYMPHOCYTES % (AUTO) 13.6 % (21-51); MEAN CORPUSCULAR HEMOGLOBIN 30.5 PG (27.0-31.0); MEAN CORPUSCULAR HGB CONC 34.4 g/dL (33.0-36.5); MEAN CORPUSCULAR VOLUME 88.7 FL (78-98); MEAN PLATELET VOLUME 8.1 FL (7.4-10.4); MONOCYTES # (AUTO) 0.7 X10'3 (0-0.9); MONOCYTES % (AUTO) 6.9 % (2-12); NEUTROPHILS # (AUTO) 7.1 X10'3 (1.8-7.7); NEUTROPHILS % (AUTO) 75.8 % (42-75); PLATELET COUNT 245 X10'3 (140-440); RED BLOOD COUNT 2.91 X10'6 (4.20-5.60); RED CELL DISTRIBUTION WIDTH 13.2 % (11.5-14.5); WHITE BLOOD COUNT 9.4 X10'3 (4.5-11.0)
[2024-09-07 03:46] LABS: ALBUMIN 2.7 G/DL (3.4-5.0); ANION GAP 5 (8-16); BLOOD UREA NITROGEN 12 MG/DL (7-18); BUN/CREATININE RATIO 10.2 (10.0-20.0); CALCIUM 9.1 MG/DL (8.5-10.1); CHLORIDE 103 MMOL/L (99-107); CREATININE 1.18 MG/DL (0.40-0.90); GLUCOSE 97 MG/DL (70-104); MAGNESIUM 1.6 MG/DL (1.5-2.4); POTASSIUM 3.8 MMOL/L (3.5-5.1); SODIUM 137 MMOL/L (135-145); TOTAL CARBON DIOXIDE 28.6 MMOL/L (24-32); eCRCL 41 ML/MIN; eGFR 47 ML/MIN
[2024-09-07] MEDS: nicotine 21mg patch - 24 hr TD SCH (09:28)
[2024-09-08 06:00] VITALS: BP 152/86; PULSE 97; RESP 20; TEMP 98.2; O2SAT 99
[2024-09-08 07:14] LABS: BASOPHILS # (AUTO) 0.1 X10'3 (0-0.2); BASOPHILS % (AUTO) 0.7 % (0-1); EOSINOPHILS # (AUTO) 0.3 X10'3 (0-0.9); EOSINOPHILS % (AUTO) 3.4 % (0-6); HEMATOCRIT 30.7 % (35.0-45.0); HEMOGLOBIN 10.4 g/dl (12.0-16.0); LYMPHOCYTES # (AUTO) 1.2 X10'3 (1.1-4.8); LYMPHOCYTES % (AUTO) 13.6 % (21-51); MEAN CORPUSCULAR HEMOGLOBIN 29.9 PG (27.0-31.0); MEAN CORPUSCULAR HGB CONC 33.9 g/dL (33.0-36.5); MEAN CORPUSCULAR VOLUME 88.3 FL (78-98); MEAN PLATELET VOLUME 7.5 FL (7.4-10.4); MONOCYTES # (AUTO) 0.7 X10'3 (0-0.9); MONOCYTES % (AUTO) 7.9 % (2-12); NEUTROPHILS # (AUTO) 6.6 X10'3 (1.8-7.7); NEUTROPHILS % (AUTO) 74.4 % (42-75); PLATELET COUNT 396 X10'3 (140-440); RED BLOOD COUNT 3.48 X10'6 (4.20-5.60); RED CELL DISTRIBUTION WIDTH 13.5 % (11.5-14.5); WHITE BLOOD COUNT 8.8 X10'3 (4.5-11.0)
[2024-09-08 07:45] LABS: ALBUMIN 2.8 G/DL (3.4-5.0); ANION GAP 4 (8-16); BLOOD UREA NITROGEN 13 MG/DL (7-18); BUN/CREATININE RATIO 10.7 (10.0-20.0); CALCIUM 9.2 MG/DL (8.5-10.1); CHLORIDE 99 MMOL/L (99-107); CREATININE 1.22 MG/DL (0.40-0.90); GLUCOSE 100 MG/DL (70-104); SODIUM 134 MMOL/L (135-145); TOTAL CARBON DIOXIDE 30.9 MMOL/L (24-32); eCRCL 40 ML/MIN; eGFR 45 ML/MIN
[2024-09-08 08:00] VITALS: RESP 20; O2SAT 99
[2024-09-08] MEDS: ondansetron/PF 4mg/2ml inj IV PRN (09:04)
[2024-09-08 11:00] VITALS: BP 170/92; PULSE 89; RESP 17; TEMP 98.1; O2SAT 98
[2024-09-08] MEDS ORDERED: metoclopramide 10mg tablet PO PRN (11:05)
[2024-09-08] MEDS: bisacodyl 10mg suppository rectal RC STA (13:54)
[2024-09-08] MEDS ORDERED: OMEP20CA15 PO (14:58)
[2024-09-08] MEDS ORDERED: POLY17PO10 PO (14:58)
[2024-09-08] MEDS ORDERED: ACET-1008 PO ×2 (14:59)
[2024-09-08 15:00] VITALS: BP 146/82; PULSE 95; RESP 18; TEMP 98.3; O2SAT 96
[2024-09-08] MEDS ORDERED: HYDR-3965 PO (15:03)
== END 2024-09-08 17:25 | disposition home or self-care (01) | DRG 710 ==
LOC: ER 10:40 → PCU 3S 16:51 → UNDOADMIN 20:35 → PCU 3S 20:35
PROVIDERS: ADMIT Internal Medicine; ATTEND Internal Medicine
PROC: BW251ZZ Computerized Tomography (CT Scan) of Chest, Abdomen and Pelvis using Low Osmolar Contrast (ICD-10-PCS; 2024-09-03)
PROC: 30233N1 Transfusion of Nonautologous Red Blood Cells into Peripheral Vein, Percutaneous Approach (ICD-10-PCS; 2024-09-03)
PROC: 04B Lower Arteries, Excision (ICD-10-PCS; principal; 2024-09-03 16:47)
DX: A41.9 Sepsis, unspecified organism (principal); N17.0 Acute kidney failure with tubular necrosis; K27.6 Chronic or unspecified peptic ulcer, site unspecified, with both hemorrhage and perforation; K66.1 Hemoperitoneum; R18.8 Other ascites; D62 Acute posthemorrhagic anemia; I72.8 Aneurysm of other specified arteries; E03.9 Hypothyroidism, unspecified; F31.9 Bipolar disorder, unspecified; E78.00 Pure hypercholesterolemia, unspecified; F41.9 Anxiety disorder, unspecified; J44.9 Chronic obstructive pulmonary disease, unspecified; G43.909 Migraine, unspecified, not intractable, without status migrainosus; F20.9 Schizophrenia, unspecified; K21.9 Gastro-esophageal reflux disease without esophagitis; Z79.899 Other long term (current) drug therapy; Z98.51 Tubal ligation status; Z87.891 Personal history of nicotine dependence
CPT/HCPCS: 36415; 36430; 71045; 71260; 74177; 80047; 80048; 80053; 80305; 81001; 83605; 83735; 84145; 84484; 85025; 85027; 85379; 86885; 86900; 86901; 86920; 87040; 87077; 87081; 87186; 93005; 96374; 97116; 97161; 99285; A4618; A6212; A6258; A6449; A7000; C1758; C9290; G0378; J0131; J0665; J0692; J0694; J1100; J1171; J2250; J2270; J2405; J2470; J2543; J2704; J2710; J3010; J3490; J7030; J7050; J7120; P9016; P9045; Q9967

== ENCOUNTER 2024-09-12 01:16 | Inpatient (IN) | payer MEDICAID ==
[~2024-09-12] VITALS: Ht 165.1 cm; Wt 51.0 kg
[~2024-09-12 01:16] MED LIST changes: +ACET-1008 PO; -ALBU18HF2 INH; -ALBUTEROL SUL 90 MCG; -ARIP400S3 IM; -ARIP5TAB12 PO; -CALC-951 PO; -CIPR7.5D OT; -DIVA500T39 PO; -DIVALPROEX SODIUM 500 MG; -FEXO-353 PO; -FEXOFENADINE HCL 60 MG; +GABA-530 PO; +HYDR-3965 PO; -HYDR28CR14 TOP; -IBUP-1985 PO; -MELA3TAB39 PO; -NAPR-996 PO; +OMEP20CA15 PO; -OMEP20CA16 PO; -OMEPRAZOLE 20 MG; +POLY17PO10 PO; -POLYETHYLENE GLYCOL 3350 POWD; -SUMATRIPTAN SUCCINAT; -TOBR5DRO2 RIGHTEYE; -TOPIRAMATE 50 MG
[2024-09-12 01:55] LABS: BILIRUBIN,URINE NEGATIVE (Neg); CLARITY,URINE CLEAR (Clear); COLOR,URINE YELLOW (Yellow); GLUCOSE, URINE NEGATIVE (Neg); KETONES,URINE NEGATIVE (Neg); LEUKOCYTE ESTERASE ,URINE NEGATIVE (Neg); NITRITES, URINE NEGATIVE (Neg); OCCULT BLOOD,URINE NEGATIVE (Neg); PH,URINE 6.5 (4.8-8.0); PROTEIN,URINE TRACE mg/dl (Neg); UROBILINOGEN,URINE 0.2 E.U/dL (0.2-1.0)
[2024-09-12 01:57] LABS: UA COLLECTION TYPE VOIDED
[2024-09-12 02:01] LABS: URINE AMPHETAMINE SCREEN NEGATIVE (Neg); URINE BARBITUATE SCREEN NEGATIVE (Neg); URINE BENZODIAZEPINES SCREEN NEGATIVE (Neg); URINE CANNABINOID SCREEN POSITIVE (Neg); URINE COCAINE SCREEN NEGATIVE (Neg); URINE METHADONE SCREEN NEGATIVE (Neg); URINE OPIATE SCREEN POSITIVE (Neg); URINE PHENCYCLIDINE SCREEN NEGATIVE (Neg)
[2024-09-12 02:04] LABS: BACTERIA,URINE FEW /HPF (Neg); RBC,URINE 0-2 /HPF (0-2); WBC,URINE 0-4 /HPF (0-4)
[2024-09-12 02:05] LABS: SQUAMOUS EPITHELIAL CELL,UR MANY /LPF (FEW)
[2024-09-12 02:27] LABS: BASOPHILS # (AUTO) 0.1 X10'3 (0-0.2); BASOPHILS % (AUTO) 1.2 % (0-1); EOSINOPHILS # (AUTO) 0.4 X10'3 (0-0.9); EOSINOPHILS % (AUTO) 4.2 % (0-6); HEMATOCRIT 26.1 % (35.0-45.0); HEMOGLOBIN 8.7 g/dl (12.0-16.0); LYMPHOCYTES # (AUTO) 2.2 X10'3 (1.1-4.8); LYMPHOCYTES % (AUTO) 20.6 % (21-51); MEAN CORPUSCULAR HEMOGLOBIN 30.1 PG (27.0-31.0); MEAN CORPUSCULAR HGB CONC 33.2 g/dL (33.0-36.5); MEAN CORPUSCULAR VOLUME 90.6 FL (78-98); MEAN PLATELET VOLUME 6.7 FL (7.4-10.4); MONOCYTES # (AUTO) 0.9 X10'3 (0-0.9); MONOCYTES % (AUTO) 8.8 % (2-12); NEUTROPHILS # (AUTO) 6.8 X10'3 (1.8-7.7); NEUTROPHILS % (AUTO) 65.2 % (42-75); PLATELET COUNT 516 X10'3 (140-440); RED BLOOD COUNT 2.88 X10'6 (4.20-5.60); RED CELL DISTRIBUTION WIDTH 14.4 % (11.5-14.5); WHITE BLOOD COUNT 10.5 X10'3 (4.5-11.0)
[2024-09-12 02:51] LABS: ALANINE AMINOTRANSFERASE 9 U/L (12-78); ALBUMIN 2.8 G/DL (3.4-5.0); ALBUMIN/GLOBULIN RATIO 0.9 (1.1-1.5); ALKALINE PHOSPHATASE 47 IU/L (46-116); ANION GAP 1 (8-16); ASPARTATE AMINO TRANSFERASE 16 U/L (10-37); BILIRUBIN,TOTAL 0.1 MG/DL (0.1-1.0); BLOOD UREA NITROGEN 24 MG/DL (7-18); BUN/CREATININE RATIO 18.9 (10.0-20.0); CALCIUM 8.4 MG/DL (8.5-10.1); CHLORIDE 101 MMOL/L (99-107); CREATININE 1.27 MG/DL (0.40-0.90); ETHANOL < 10 MG/DL (<10); GLUCOSE 95 MG/DL (70-104); POTASSIUM 4.8 MMOL/L (3.5-5.1); SODIUM 134 MMOL/L (135-145); THYROID STIMULATING HORMONE 10.09 ulU/ml (0.34-4.50); TOTAL CARBON DIOXIDE 32.5 MMOL/L (24-32); TOTAL PROTEIN 5.8 G/DL (6.4-8.2); eCRCL 38 ML/MIN; eGFR 43 ML/MIN
[2024-09-12 07:15] LABS: FREE T4 (FREE THYROXINE) 1.04 NG/DL (0.73-1.40)
[2024-09-12] MEDS ORDERED: OMEP20CA16 PO (13:57)
[2024-09-12] MEDS ORDERED: ATOM80CA3 PO (13:57)
[2024-09-12] MEDS ORDERED: BUSP10TA3 PO (13:57)
[2024-09-12] MEDS ORDERED: polyethylene glycol 3350 17gm powd pack PO PRN (14:55)
[2024-09-12] MEDS ORDERED: SUMAtriptan 25 MG tablet PO PRN (14:55)
[2024-09-12] MEDS: gabapentin 100mg capsule PO SCH (16:47)
[2024-09-12] MEDS: acetaminophen 325mg tablet PO SCH (20:00)
[2024-09-12] MEDS: simvastatin 20mg tablet PO SCH (21:32)
[2024-09-12] MEDS: busPIRone 5mg tablet PO SCH (21:32)
[2024-09-13] MEDS ORDERED: acetaminophen 325mg tablet PO PRN ×3 (07:10→12:30)
[2024-09-13] MEDS: levoTHYROXINE 75mcg tablet PO SCH (07:48)
[2024-09-13] MEDS: pantoprazole 40mg Tablet.DR PO SCH (07:49)
[2024-09-13] MEDS: topiramate 25mg tablet PO SCH (07:50)
[2024-09-13] MEDS: atomoxetine 40 MG capsule PO SCH (07:50)
[2024-09-13 09:57] LABS: BASOPHILS # (AUTO) 0.1 X10'3 (0-0.2); EOSINOPHILS # (AUTO) 0.3 X10'3 (0-0.9); MONOCYTES # (AUTO) 0.5 X10'3 (0-0.9)
[2024-09-13 09:58] LABS: BASOPHILS % (AUTO) 0.6 % (0-1); EOSINOPHILS % (AUTO) 2.7 % (0-6); HEMATOCRIT 28.6 % (35.0-45.0); HEMOGLOBIN 9.5 g/dl (12.0-16.0); LYMPHOCYTES % (AUTO) 10.5 % (21-51); MEAN CORPUSCULAR HEMOGLOBIN 30.3 PG (27.0-31.0); MEAN CORPUSCULAR HGB CONC 33.1 g/dL (33.0-36.5); MEAN CORPUSCULAR VOLUME 91.5 FL (78-98); MEAN PLATELET VOLUME 7.3 FL (7.4-10.4); MONOCYTES % (AUTO) 5.1 % (2-12); NEUTROPHILS # (AUTO) 7.9 X10'3 (1.8-7.7); NEUTROPHILS % (AUTO) 81.1 % (42-75); PLATELET COUNT 647 X10'3 (140-440); RED BLOOD COUNT 3.13 X10'6 (4.20-5.60); RED CELL DISTRIBUTION WIDTH 14.2 % (11.5-14.5); WHITE BLOOD COUNT 9.8 X10'3 (4.5-11.0)
[2024-09-13 10:48] LABS: ELLIPTOCYTES FEW; HYPOCHROMASIA 1+; PLATELET ESTIMATE INCREASED; POLYCHROMASIA FEW
[2024-09-13 12:26] VITALS: BP 131/78; PULSE 99; RESP 18; TEMP 98.9; O2SAT 100
[2024-09-13] MEDS ORDERED: NICOTINE POLACRILEX 2 MG LOZENGE BC PRN (12:30)
[2024-09-13] MEDS ORDERED: loperamide 2mg capsule PO PRN (12:30)
[2024-09-13] MEDS ORDERED: mag hydrox/Alum hydrox/simeth 30ml oral suspension PO PRN (12:30)
[2024-09-13] MEDS: nicotine 21mg patch - 24 hr TD SCH (12:30)
[2024-09-13 18:07] VITALS: RESP 18; O2SAT 100
[2024-09-13 20:00] VITALS: BP 110/64; PULSE 79; RESP 16; TEMP 97.8; O2SAT 99
[2024-09-13 20:10] VITALS: RESP 16; O2SAT 99
[2024-09-14 07:15] VITALS: BP 97/60; PULSE 70; RESP 16; TEMP 98.3; O2SAT 99
[2024-09-14 08:09] VITALS: RESP 16; O2SAT 100
[2024-09-14 08:55] LABS: HEMOGLOBIN A1C 4.9 % (4.5-6.2)
[2024-09-14 09:05] LABS: CHOL/HDL RATIO 2.8 (0.00-4.99); CHOLESTEROL 161 MG/DL (0-200); HDL CHOLESTEROL 58 MG/DL (35-60); LDL CHOLESTEROL 81 MG/DL (50-100); TRIGLYCERIDES 121 MG/DL (20-135)
[2024-09-14] MEDS: fluphenazine decanoate**IM** 25mg/ml inj. IM ONE ×2 (14:45→16:20)
[2024-09-14] MEDS ORDERED: fluphenazine decanoate**IM** 25mg/ml inj. IM ONE (16:05)
[2024-09-14 19:00] VITALS: RESP 18; O2SAT 99
[2024-09-14 20:00] VITALS: BP 108/54; PULSE 87; RESP 16; TEMP 97.7; O2SAT 100
[2024-09-14] MEDS: atorvastatin 20mg tablet PO SCH (20:47)
[2024-09-14] MEDS: magnesium hydroxide 30ml (MOM) UD suspension PO PRN (20:52)
[2024-09-14] MEDS: gabapentin 100mg capsule PO SCH (21:03)
[2024-09-15] MEDS: levoTHYROXINE 88mcg tablet PO SCH (07:59)
[2024-09-15 08:00] VITALS: BP 115/61; PULSE 89; RESP 16; TEMP 96.8; O2SAT 100
[2024-09-15] MEDS: nicotine 14mg patch - 24hr TD SCH (08:00)
[2024-09-15] MEDS ORDERED: fluphenazine decanoate**IM** 25mg/ml inj. IM ONE (14:00)
[2024-09-15 19:15] VITALS: BP 104/63; PULSE 94; RESP 18; TEMP 97.9; O2SAT 99
[2024-09-15] MEDS: HYDROcodone/acetaminophen 5mg/325mg tablet PO PRN (20:14)
[2024-09-16 07:35] VITALS: BP 115/51; PULSE 78; RESP 16; TEMP 97; O2SAT 100
[2024-09-16 10:06] LABS: BASOPHILS # (AUTO) 0.1 X10'3 (0-0.2); EOSINOPHILS # (AUTO) 0.3 X10'3 (0-0.9); EOSINOPHILS % (AUTO) 4.6 % (0-6); HEMATOCRIT 27.5 % (35.0-45.0); HEMOGLOBIN 8.9 g/dl (12.0-16.0); LYMPHOCYTES # (AUTO) 1.3 X10'3 (1.1-4.8); MEAN CORPUSCULAR HEMOGLOBIN 29.9 PG (27.0-31.0); MEAN CORPUSCULAR HGB CONC 32.2 g/dL (33.0-36.5); MEAN CORPUSCULAR VOLUME 92.6 FL (78-98); MEAN PLATELET VOLUME 7.5 FL (7.4-10.4); MONOCYTES # (AUTO) 0.5 X10'3 (0-0.9); NEUTROPHILS # (AUTO) 5.1 X10'3 (1.8-7.7); NEUTROPHILS % (AUTO) 69.4 % (42-75); PLATELET COUNT 619 X10'3 (140-440); RED BLOOD COUNT 2.97 X10'6 (4.20-5.60); RED CELL DISTRIBUTION WIDTH 14.9 % (11.5-14.5); WHITE BLOOD COUNT 7.4 X10'3 (4.5-11.0)
[2024-09-16 10:40] LABS: CHOL/HDL RATIO 2.7 (0.00-4.99); CHOLESTEROL 145 MG/DL (0-200); HDL CHOLESTEROL 54 MG/DL (35-60); LDL CHOLESTEROL 73 MG/DL (50-100); TRIGLYCERIDES 59 MG/DL (20-135)
[2024-09-16] MEDS ORDERED: PANT40TA54 PO (11:37)
[2024-09-16] MEDS ORDERED: SYN0.088T PO (11:37)
[2024-09-16] MEDS ORDERED: JUVEN Smoothie Arginine/Glut./Ca2+Bmb (Juven 19.3pkt) 240ml cup PO SCH (17:30)
== END 2024-09-16 13:08 | disposition home or self-care (01) | DRG 750 ==
LOC: ER 01:17 → UNDOADMIN 09-13 11:20 → ADULT MH 09-13 11:20
PROVIDERS: ADMIT Psychiatry & Neurology Psychiatry; ATTEND Psychiatry & Neurology Psychiatry
PROC: GZHZZZZ Group Psychotherapy (ICD-10-PCS; principal; 2024-09-15)
DX: F25.0 Schizoaffective disorder, bipolar type (principal); R45.851 Suicidal ideations; J45.909 Unspecified asthma, uncomplicated; F17.210 Nicotine dependence, cigarettes, uncomplicated; F12.10 Cannabis abuse, uncomplicated; E78.00 Pure hypercholesterolemia, unspecified; G43.909 Migraine, unspecified, not intractable, without status migrainosus; Z20.822 Contact with and (suspected) exposure to COVID-19; F41.9 Anxiety disorder, unspecified; K21.9 Gastro-esophageal reflux disease without esophagitis; Z98.51 Tubal ligation status; Z79.899 Other long term (current) drug therapy
CPT/HCPCS: 36415; 80053; 80061; 80305; 80320; 81001; 83036; 84439; 84443; 84480; 85008; 85025; 87081; 87811; 99285; J2680

== ENCOUNTER 2024-09-22 10:00 | Emergency (ER) | payer MEDICAID ==
[~2024-09-22] VITALS: Ht 165.1 cm; Wt 49.1 kg
[~2024-09-22 10:00] MED LIST changes: +ATOM80CA3 PO; +BUSP10TA3 PO; -LEVO75TA PO; -OMEP20CA15 PO; +PANT40TA54 PO; -POLY17PO10 PO; +SYN0.088T PO
[2024-09-22 11:13] VITALS: BP 117/71; PULSE 104; RESP 18; TEMP 98.7; O2SAT 100
== END 2024-09-22 11:15 | disposition home or self-care (01) ==
LOC: ER 10:00
DX: S31.112D Laceration without foreign body of abdominal wall, epigastric region without penetration into peritoneal cavity, subsequent encounter (principal); E78.00 Pure hypercholesterolemia, unspecified; J45.909 Unspecified asthma, uncomplicated; K21.9 Gastro-esophageal reflux disease without esophagitis; F31.9 Bipolar disorder, unspecified; F20.9 Schizophrenia, unspecified; F41.9 Anxiety disorder, unspecified; G43.909 Migraine, unspecified, not intractable, without status migrainosus; F12.90 Cannabis use, unspecified, uncomplicated; F15.90 Other stimulant use, unspecified, uncomplicated; Z56.0 Unemployment, unspecified; Z79.1 Long term (current) use of non-steroidal anti-inflammatories (NSAID); Z79.899 Other long term (current) drug therapy; Z98.51 Tubal ligation status; X58.XXXD Exposure to other specified factors, subsequent encounter
CPT/HCPCS: 99281